=== PATIENT | male | born 1960 | race Caucasian/White ===

== ENCOUNTER 2020-12-02 12:19 | Emergency (ER) | payer MEDICARE, MEDICAID, SELFPAY ==
--- NOTE | 2020-12-02 12:29 | ED.SKABFB ---
HPI - Skin/Abscess/Foreign Bdy General Chief complaint: Skin/Abscess/Foreign Body Stated complaint: poison Meghana Time Seen by Provider: 12/02/20 12:29 Source: patient and RN notes reviewed Mode of arrival: ambulatory Limitations: no limitations History of Present Illness HPI narrative: 60-year-old male presents to the [facility] with complaints of a generalized rash for 2-3 days. Reports I have poison meghana as he is pointing to his genital area. Reports rash to the right arm, testicles and abdomen describes it as being very itchy. Denies any new creams or ointments lotions or detergents. No new furniture, clothing or bedding. Denies anyone else in the household has anything similar. Related Data Home Medications Medication Instructions Recorded Confirmed brexpiprazole [Rexulti] 4 mg PO DAILY 12/02/20 12/02/20 methadone 80 mg PO DAILY 12/02/20 12/02/20 Allergies Allergy/AdvReac Type Severity Reaction Status Date / Time Iodinated Contrast Media Allergy Dyspnea / Verified 12/02/20 12:39 SOB Review of Systems Review of Systems: All systems reviewed & are unremarkable except as noted in HPI and below Constitutional: Constitutional: Reports no additional constitutional complaints, Denies chills, Denies fatigue, Denies fever(s) and Denies weakness Cardiovascular: Cardiovascular: Reports no additional cardiovascular complaints and Denies chest pain Respiratory: Respiratory: Reports no additional respiratory complaints, Denies chest congestion, Denies cough, Denies dyspnea and Denies wheezing Gastrointestinal: Gastrointestinal: Reports no additional gastrointestinal complaints, Denies abdominal pain, Denies nausea and Denies vomiting Musculoskeletal: Musculoskeletal: Reports no additional musculoskeletal complaints Integumentary/Breasts: Skin/Breast: Reports rash Neurologic: Reports system reviewed and no additional complaints, except as documented, Denies dizziness, Denies syncope, Denies focal weakness and Denies numbness Psychiatric: Psychiatric: Reports no additional psychiatric complaints PMFSH Comments At the time of my signature, I reviewed and agree with the nursing past medical, surgical, social, and family history. There is no relevant family history pertinent to the patient complaint. Exam Const: General: no acute distress, alert and ill appearing chronically Nutritional Appearance: well nourished Orientation/consciousness: patient oriented x3 Limitations: no limitations HENMT: Head: normal to inspection Eyes: Pupils: Equal, round and reactive pupils present Neck: Neck: normal visual inspection and no lymphadenopathy Chest: Chest palpation & inspection: normal inspection of the chest Resp: Effort & Inspection: normal respiratory effort and no use of accessory muscles Auscultation: clear to auscultation bilaterally, no crackles, no rales, no rhonchi and no wheezes Cardio: Rate: regular rate Rhythm: regular rhythm : Other: Patient concern for poison meghana to his testicles, chaperoned by Megan MCDOWELL. No testicular rash noted on exam. No testicular tenderness. Back/Spine/Pelvis: Back: no CVA tenderness Skin: Other: 3 small red areas noted to the right antecubital, area dorsal aspect right wrist, 2 small areas on his abdomen. Patient states everything is under my tattoos. . No vesicular areas noted. No red raised areas other than previous documented Neuro: General: patient oriented x3, moves all extremities, no meningeal signs and no focal motor deficits Speech: normal speech Gait exam (Neuro): Normal gait present Extrem: General: normal to inspection Psych: Appearance: grossly normal Mental Status: mental status grossly normal Affect: normal affect Attitude: cooperative Thought content: Yes Normal thought content present Course Vital Signs Vital signs: Vital Signs Temperature 99.3 F 12/02/20 12:30 Pulse Rate 74 12/02/20 12:30 Respiratory Rate 16 12/02/20 12:30 Blood Pr
[2020-12-02 12:30] VITALS: BP 140/74; PULSE 74; RESP 16; TEMP 37.4; O2SAT 99
== END 2020-12-02 12:59 | disposition home or self-care (01) ==
PROVIDERS: Emergency Provider Nurse Practitioner
DX: S40.861A Insect bite (nonvenomous) of right upper arm, initial encounter (principal); S60.861A Insect bite (nonvenomous) of right wrist, initial encounter; S30.861A Insect bite (nonvenomous) of abdominal wall, initial encounter; W57.XXXA Bitten or stung by nonvenomous insect and other nonvenomous arthropods, initial encounter; F32.9 Major depressive disorder, single episode, unspecified; Z85.72 Personal history of non-Hodgkin lymphomas
CPT/HCPCS: 99213; G0463

== ENCOUNTER 2021-03-20 13:59 | Emergency (ER) | payer MEDICARE, MEDICAID, SELFPAY ==
--- NOTE | 2021-03-20 14:06 | ED.WOUNDLAC ---
HPI - Wound/Laceration General Chief Complaint: Wound/Laceration Stated Complaint: Dog scratch on right Arm Time Seen by Provider: 03/20/21 14:07 Source: patient and RN notes reviewed History of Present Illness HPI narrative: Patient is a 60-year-old male who presents the urgent care with complaints of a dog scratch to the right forearm. Patient states that occurred approximately 3 days ago and he has been cleaning it with alcohol. Patient states he woke up this morning with some redness and swelling to the right arm. Also reports of tenderness. Denies of any fever, nausea, vomiting. No other acute complaints. No acute distress noted. Patient aware of the plan of care. Some parts of this dictation were generated by voice recognition software and may contain typographical and/or grammatical inaccuracies. Related Data Home Medications Medication Instructions Recorded Confirmed brexpiprazole [Rexulti] 4 mg PO DAILY 12/02/20 03/20/21 methadone 80 mg PO DAILY 12/02/20 03/20/21 Allergies Allergy/AdvReac Type Severity Reaction Status Date / Time Iodinated Contrast Media Allergy Dyspnea / Verified 03/20/21 14:05 SOB Review of Systems Review of Systems: CONSTITUTIONAL: Denies fever, chills, or sweats. EYES: Denies visual changes, redness, or discharge. ENT: Denies rhinorrhea, congestion, sore throat, or otalgia. CARDIOVASCULAR: Denies chest pain, palpitations, or edema. RESPIRATORY: Denies cough or dyspnea. GASTROINTESTINAL: Denies abdominal pain, nausea, vomiting, or diarrhea. GENITOURINARY: Denies dysuria or hematuria. SKIN: Reports of a dog scratch to the right forearm with surrounding redness and tenderness MUSCULOSKELETAL: Denies back pain, joint pain, or myalgia. NEUROLOGIC: Denies headache, numbness, or weakness. All other systems reviewed are negative, except as documented in HPI. PMFSH Comments At the time of my signature, I reviewed and agree with the nursing past medical, surgical, social, and family history. There is no relevant family history pertinent to the patient complaint. Exam Narrative: GENERAL: This is a well-nourished, well-developed patient, in no apparent distress. HEAD: normocephalic, atraumatic. EYES: PERRL. Sclera clear/white. Vision is grossly intact. EARS: External ears normal NOSE: External nose normal with no obvious nasal discharge, nares without redness, no rhinorrhea. THROAT: Mucous membranes moist NECK: Neck supple CARDIOVASCULAR: Regular rate and rhythm without murmurs, gallops, or rubs. RESPIRATORY: Clear to auscultation. Breath sounds equal bilaterally. No wheezes, rales, or rhonchi. SKIN: 2 cm linear superficial wound to the right forearm with 5 x 5 surrounding edema and mild surrounding erythema with mild tenderness NEURO: awake, alert, and oriented to person, place and time. There were no obvious focal neurologic abnormalities. EXTREMITIES: No clubbing, cyanosis, or edema. Course Vital Signs Vital signs: Vital Signs Temperature 97.8 F 03/20/21 14:10 Pulse Rate 80 03/20/21 14:10 Respiratory Rate 18 03/20/21 14:10 Blood Pressure 106/66 03/20/21 14:10 Pulse Oximetry 97 03/20/21 14:10 Temperature 97.8 F 03/20/21 14:10 Pulse Rate 80 03/20/21 14:10 Respiratory Rate 18 03/20/21 14:10 Blood Pressure 106/66 03/20/21 14:10 Pulse Oximetry 97 03/20/21 14:10 Reviewed MDM - Wound/Laceration MDM Narrative Medical decision making narrative: Advised the patient to use the prescription cream to the affected area twice a day. Keep the wound closed if at risk of being soiled. Clean with plain Dial soap and water. Complete the oral antibiotic regimen as prescribed. If you develop any increase in swelling, redness or drainage from the wound?go to the emergency room. Follow-up with your PCP within 2 to 5 days or for worsening symptoms or failure to improve. Differential Diagnosis Differential diagnosis: Likely laceration, abscess, abrasion and avulsio
[2021-03-20 14:10] VITALS: BP 106/66; PULSE 80; RESP 18; TEMP 36.6; O2SAT 97
== END 2021-03-20 14:20 | disposition home or self-care (01) ==
PROVIDERS: Emergency Provider Nurse Practitioner Family
DX: L03.113 Cellulitis of right upper limb (principal)
CPT/HCPCS: 99213; G0463

== ENCOUNTER 2021-04-01 18:37 | Emergency (ER) | payer MEDICARE, MEDICAID, SELFPAY ==
[2021-04-01 18:49] VITALS: BP 156/67; PULSE 88; RESP 20; TEMP 36.8; O2SAT 99
--- NOTE | 2021-04-01 18:50 | ED.GENADULT ---
HPI - General Adult General Chief complaint: Upper Respiratory Infection Stated complaint: sinus/chest gallito,102 temp Time Seen by Provider: 04/01/21 18:51 Source: patient Mode of arrival: ambulatory Limitations: no limitations History of Present Illness HPI narrative: 60-year-old male patient presents to the [facility] with complaints of suspected fever and cold symptoms that started today. Patient states he took his temperature today and was 100.2. Patient states he has had a little bit of drainage with a cough. Denies body aches or chills. Denies any abdominal pain, nausea, vomiting or diarrhea. Denies any chest pain or shortness of breath. Patient states he is not vaccinated. Patient states he has concerned because he is living in a [facility] at this time with his and his has autoimmune disorder of rheumatoid arthritis and scar doses. is vaccinated. Patient here to be evaluated and possibly tested for COVID-19. Related Data Home Medications Medication Instructions Recorded Confirmed methadone 80 mg PO DAILY 12/02/20 03/20/21 brexpiprazole [Rexulti] 1 mg PO DAILY 04/01/21 04/01/21 mirtazapine 15 mg PO HS 04/01/21 04/01/21 Allergies Allergy/AdvReac Type Severity Reaction Status Date / Time Iodinated Contrast Media Allergy Dyspnea / Verified 04/01/21 19:15 SOB Review of Systems Review of Systems: CONSTITUTIONAL: Positive subjective fever, denies chills, or sweats. EYES: Denies visual changes, redness, or discharge. ENT: Positive rhinorrhea, congestion, denies sore throat, or otalgia. CARDIOVASCULAR: Denies chest pain, palpitations, or edema. RESPIRATORY: Positive cough, denies dyspnea. GASTROINTESTINAL: Denies abdominal pain, nausea, vomiting, or diarrhea. GENITOURINARY: Denies dysuria or hematuria. SKIN: Denies rash or itching. MUSCULOSKELETAL: Denies back pain, joint pain, or myalgia. NEUROLOGIC: Denies headache, numbness, or weakness. PSYCHIATRIC: Denies anxiety or depression. [facility] Past Medical History Medical History (Updated 04/01/21 @ 19:30 by MAHAMED Bradley) Substance abuse Heroin positive Suspected COVID-19 virus infection Comments At the time of my signature I agree with nursing past medical history, surgical, social, and family history. There is no relevant family history pertinent to the presenting complaint. Exam Narrative: GENERAL: Well-appearing, well-nourished, and in no acute distress. HEAD: Normocephalic, atraumatic. EYES: PERRLA and EOMI. ENT: Nares clear, no rhinorrhea or epistaxis. Mucous membranes moist. Bilateral TMs are clear no erythema or foreign bodies to the canal. Posterior pharynx with no erythema, tonsillar Ambika, exudates or lesions present. NECK: Supple. No lymphadenopathy CHEST: Clear to auscultation. No respiratory distress. HEART: Regular rate and rhythm. No murmur heard. Normal peripheral pulses. ABDOMEN: Soft, nontender, nondistended, normal active bowel sounds. EXTREMITIES: Normal range of motion. No edema. SKIN: Warm, dry, no rash. NEURO: No focal deficits. Alert and oriented x3. Course Vital Signs Vital signs: Vital Signs Temperature 36.8 C 04/01/21 18:49 Pulse Rate 88 04/01/21 18:49 Respiratory Rate 20 04/01/21 18:49 Blood Pressure 156/67 H 04/01/21 18:49 Pulse Oximetry 99 04/01/21 18:49 Temperature 36.8 C 04/01/21 18:49 Pulse Rate 88 04/01/21 18:49 Respiratory Rate 20 04/01/21 18:49 Blood Pressure 156/67 H 04/01/21 18:49 Pulse Oximetry 99 04/01/21 18:49 Vital signs reviewed The patient has been informed that they may have pre-hypertension or Hypertension based on a BP reading in the department. I recommend that the patient call the primary care provider listed on their discharge instructions or a physician of their choice this week to arrange follow up for further evaluation of possible pre-hypertension or Hypertension Medical Decision Making Differential Diagnosis Differential Diag
[2021-04-03 19:00] LABS: SARS-CoV-2 RNA PCR Negative
== END 2021-04-01 19:30 | disposition home or self-care (01) ==
PROVIDERS: Emergency Provider Nurse Practitioner Family
DX: R50.9 Fever, unspecified (principal); R09.89 Other specified symptoms and signs involving the circulatory and respiratory systems; R05 Cough; Z20.822 Contact with and (suspected) exposure to COVID-19
CPT/HCPCS: 99213; C9803; G0463; U0003; U0005

== ENCOUNTER 2021-04-25 18:01 | Emergency (ER) | payer MEDICARE, MEDICAID, SELFPAY ==
--- NOTE | 2021-04-25 18:03 | ED.SKABFB ---
HPI - Skin/Abscess/Foreign Bdy General Chief complaint: Skin/Abscess/Foreign Body Stated complaint: Skin Sore Time Seen by Provider: 04/25/21 18:03 Source: patient and RN notes reviewed History of Present Illness HPI narrative: Patient is a 60-year-old male who presents the urgent care with complaints of a skin sore to the right thigh. Patient states he noticed approximately a week ago and has been picking on the area. Patient states that he believes it started out as an ingrown hair and he tried to pick the hair out . Patient has been using peroxide, alcohol and Neosporin to the area. Denies of any change in redness. Denies of fever, chills, nausea, vomiting. No other acute complaints. No acute distress noted. Patient aware of the plan of care. Some parts of this dictation were generated by voice recognition software and may contain typographical and/or grammatical inaccuracies. Related Data Home Medications Medication Instructions Recorded Confirmed methadone 60 mg PO DAILY 12/02/20 04/25/21 brexpiprazole [Rexulti] 1 mg PO DAILY 04/01/21 04/25/21 mirtazapine 15 mg PO HS 04/01/21 04/25/21 Allergies Allergy/AdvReac Type Severity Reaction Status Date / Time Iodinated Contrast Media Allergy Rash Verified 04/25/21 18:15 Review of Systems Review of Systems: CONSTITUTIONAL: Denies fever, chills, or sweats. EYES: Denies visual changes, redness, or discharge. ENT: Denies rhinorrhea, congestion, sore throat, or otalgia. CARDIOVASCULAR: Denies chest pain, palpitations, or edema. RESPIRATORY: Denies cough or dyspnea. GASTROINTESTINAL: Denies abdominal pain, nausea, vomiting, or diarrhea. GENITOURINARY: Denies dysuria or hematuria. SKIN: Reports of a sore to the right thigh MUSCULOSKELETAL: Denies back pain, joint pain, or myalgia. NEUROLOGIC: Denies headache, numbness, or weakness. All other systems reviewed are negative, except as documented in HPI. [facility] Past Medical History Medical History (Updated 04/25/21 @ 18:19 by MAHAMED Gonzalez) Substance abuse Heroin positive Suspected COVID-19 virus infection Comments At the time of my signature, I reviewed and agree with the nursing past medical, surgical, social, and family history. There is no relevant family history pertinent to the patient complaint. Exam Narrative: GENERAL: This is a well-nourished, well-developed patient, in no apparent distress. HEAD: normocephalic, atraumatic. EYES: PERRL. Sclera clear/white. Vision is grossly intact. EARS: External ears normal NOSE: External nose normal with no obvious nasal discharge, nares without redness, no rhinorrhea. THROAT: Mucous membranes moist NECK: Neck supple CARDIOVASCULAR: Regular rate and rhythm RESPIRATORY: Clear to auscultation. Breath sounds equal bilaterally. No wheezes, rales, or rhonchi. SKIN: Noncellulitic folliculitis noted to the anterior aspect of the right thigh with very mild surrounding erythema measuring 4 x 1 cm-no drainage. Warm, intact with no suspicious lesions or rash, good texture and turgor. NEURO: awake, alert, and oriented to person, place and time. There were no obvious focal neurologic abnormalities. EXTREMITIES: No clubbing, cyanosis, or edema. Course Vital Signs Vital signs: Vital Signs Temperature 98.1 F 04/25/21 18:05 Pulse Rate 77 04/25/21 18:05 Respiratory Rate 16 04/25/21 18:05 Blood Pressure 134/84 04/25/21 18:05 Pulse Oximetry 98 04/25/21 18:05 Temperature 98.1 F 04/25/21 18:05 Pulse Rate 77 04/25/21 18:05 Respiratory Rate 16 04/25/21 18:05 Blood Pressure 134/84 04/25/21 18:05 Pulse Oximetry 98 04/25/21 18:05 Reviewed MDM - Skin/Abscess/Foreign Bdy MDM Narrative Medical decision making narrative: Advised the patient to use ice to the area as needed. Use of prescription cream to the area 2-3 times per day as directed. Clean with plain Dial soap and water. Do not put any alcohol, peroxide or printed on the area. May at
[2021-04-25 18:05] VITALS: BP 134/84; PULSE 77; RESP 16; TEMP 36.7; O2SAT 98
== END 2021-04-25 18:24 | disposition home or self-care (01) ==
PROVIDERS: Emergency Provider Nurse Practitioner Family; PCP Nurse Practitioner Family
DX: L73.9 Follicular disorder, unspecified (principal); E78.00 Pure hypercholesterolemia, unspecified; Z85.72 Personal history of non-Hodgkin lymphomas
CPT/HCPCS: 99213; G0463

== ENCOUNTER 2024-10-15 13:59 | Emergency (ER) | payer MEDICARE, MEDICAID, SELFPAY ==
[2024-10-15 14:21] VITALS: BP 128/75; PULSE 75; RESP 20; TEMP 37.1; O2SAT 97
--- OUTSIDE RECORDS SUMMARY | 2024-10-15 14:23 | XMS_ITS | Clinical Summary ---
Author Organization [facility] Address [address] [place] [address] Phone Care Team Providers Care Staff Counselor Name Role Phone Bladimir Sanz MD Primary Care Provider [phone] Allergies Active Allergy Reactions Criticality Noted Date Comments Influenza Vaccine Live Anaphylaxis High 03/28/2023 Patient allergy to Flue Vaccine Iodinated Contrast Media Hives High 03/05/2023 Medications atorvastatin (LIPITOR) 40 MG Tablet 3 Active testosterone cypionate (DEPO-TESTOSTER ONE) 200 MG/ML Solution by Intramuscular route. 3 Active SYRINGE-NEEDLE, DISP, 3 ML (B-D INTEGRA SYRINGE) 25G X 5/8 3 ML Misc Use to inject testosterone every week 3 Active sildenafil (REVATIO) 20 MG Tablet Take 60-100 mg prn before intercourse 3 Active methadone (DOLOPHINE) 10 MG/ML Concentrate Take 60 mg by mouth. Active predniSONE (DELTASONE) 20 MG Tablet Take 2 Tablets by mouth daily. 10 Tablet 4 Active triamcinolone (KENALOG) 0.1 % Cream Apply 3 times daily. Application Site: (Description and Location)left thigh 454 g 4 Active Encounters Date Type Department Care Team Description 10/08/2024 10:30 AM CDT Physical Therapy [facility] [address] [place] [address] Umesh, Mari Noriega, PARKING LOT SIGNALER, LEASING SALES CONSULTANT Tamy Bose, PT Cervical radiculopathy (Primary Dx); Left elbow tendinitis; Impingement syndrome of left shoulder region Discharge Disposition: Discharged to home or Selfcare 10/06/2024 Travel 09/29/2024 9:00 AM CDT Occupational Therapy [facility] [address] [place] [address] Umesh, Mari Noriega, PARKING LOT SIGNALER, LEASING SALES CONSULTANT Cadence Hairston K, OT 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 of left 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 (Primary Dx); Lateral epicondylitis, left elbow Discharge Disposition: Discharged to home or Selfcare 09/29/2024 Plan of Care Documentation [facility] [address] [place] [address] 09/28/2024 8:15 AM CDT Physical Therapy [facility] [address] [place] [address] Umesh, Mari Noriega, PARKING LOT SIGNALER, Willian Ricardo, PT Cervical radiculopathy (Primary Dx); Left elbow tendinitis; Impingement syndrome of left shoulder region Discharge Disposition: Discharged to home or Selfcare 09/27/2024 Travel 09/16/2024 2:30 PM LEAD NETWORK ARCHITECT Physical Therapy [facility] [address] [place] [address] Umesh, Mari A, PARKING LOT SIGNALER, LEASING SALES CONSULTANT Willian Nettles, PT Cervical radiculopathy (Primary Dx); Left elbow tendinitis; Impingement syndrome of left shoulder region Discharge Disposition: Discharged to home or Selfcare 09/16/2024 Travel 09/14/2024 1:45 PM LEAD NETWORK ARCHITECT Physical Therapy [facility] [address] [place] [address] Mari Calvo APRN, Willian Ricardo, PT Cervical radiculopathy (Primary Dx); Impingement syndrome of left shoulder region; Left elbow tendinitis Discharge Disposition: Discharged to home or Selfcare 09/14/2024 Travel 09/11/2024 Transcribe Orders [facility] [address] [place] [address] Mari Calvo APRN, LEASING SALES CONSULTANT Lateral epicondylitis, left elbow (Primary Dx) 09/10/2024 3:15 PM LEAD NETWORK ARCHITECT Physical Therapy [facility] [address] [place] [address] Mari Calvo APRN, Tamy Mcgraw, PT Impingement syndrome of left shoulder region (Primary Dx); Left elbow tendinitis; Cervical radiculopathy Discharge Disposition: Discharged to home or Selfcare 09/10/2024 Plan of Care Documentation [facility] [address] [place] [address] 09/10/2024 Travel 07/30/2024 Telephone [facility] [address] [place] [address] Rachel Barriga, PT Appointment from Last 3 Months Family History Medical History Relation Name Comments Alcohol Abuse Father Liver Disease Father Alcohol Abuse Mother Drug Abuse Mother Macular Degeneration Mother No Known Problems Sister 1 Alcohol Abuse Sister 2 Drug Abuse Sister 2 Schizophrenia Sister 2 No Known Problems Sister 3 Relation Name Status Comments Father Mother Alive Sister 1 Alive Sister 2 Alive Sister 3 Alive Social History Tobacco Use Types Packs/Day Years Used Date Smoking Tobacco: Former Cigarettes Smokeless Tobacco: Never Tobacco Cessation:Counseling Given: No Alcohol Use Standard Drinks/Week Comments Never 0 (1 standard drink = 0.6 oz pur e alcohol) PHQ-2 Answer Date Recorded Total Score - Questions 1-9 04/15 Education Answer Date Recorded What is the highest level of school you have completed or the highest degree you have received? 9th grade 05/07/2023 Sex and Gender Information Value Date Recorded Sex Assigned at Not on file Legal Sex Male 11:58 PM CDT Gender Identity Not on file Sexual Orientation Not on file Last Filed Vital Signs Vital Sign Reading Time Taken Comments Blood Pressure 128/66 12/28/2023 7:33 PM CDT Pulse 77 12/28/2023 7:33 PM CDT Temperature 36.5 C (97.7 F) 12/28/2023 7:33 PM CDT Respiratory Rate 17 12/28/2023 7:33 PM CDT Oxygen Saturation 96% 12/28/2023 7:33 PM CDT Inhaled Oxygen Concentration - - Weight 79.4 kg (175 lb) 12/28/2023 7:33 PM CDT Height 177.8 cm (5' 10 ) 12/28/2023 7:33 PM CDT Body Mass Index 25.11 12/28/2023 7:33 PM CDT Plan of Treatment Upcoming Encounters Date Type Department Care Team (Late st Contact Info) Description 10/20/2024 9:45 AM CDT Occupational Therapy [facility] [address] [place] [address] Mari Calvo APRN, LEASING SALES CONSULTANT [address] [place] [address] Cadence Hairston OT [place] 10/20/2024 10:30 AM CDT Physical Therapy [facility] [address] [place] [address] Mari Calvo APRN, LEASING SALES CONSULTANT [address] [place] [address] Tamy Bose PT [place] 10/27/2024 9:45 AM CDT Occupational Therapy [facility] [address] [place] [address] Umesh, Mari A, PARKING LOT SIGNALER, LEASING SALES CONSULTANT [address] [place] [address] Cadence Hairston OT [place] 11/03/2024 9:45 AM CDT Occupational Therapy [facility] [address] [facility], [address] [place] [address] Umesh, Mari A, PARKING LOT SIGNALER, LEASING SALES CONSULTANT [address] [place] [address] Cadence Hairston, OT [place] 11/17/2024 9:45 AM CDT Occupational Therapy [facility] at [address], [address] [place] [address] Umesh, Mari A, PARKING LOT SIGNALER, LEASING SALES CONSULTANT [address] [place] [address] Cadence Hairston, [place] 11/24/2024 9:45 AM CDT Occupational Therapy [facility] at [address], [address] [place] [address] Umesh, Mari A, PARKING LOT SIGNALER, LEASING SALES CONSULTANT [address] [place] [address] Cadence Hairston, OT [place] 12/01/2024 9:45 AM CDT Occupational Therapy [facility] at [address], [address] [place] [address] Umesh, Mari A, PARKING LOT SIGNALER, LEASING SALES CONSULTANT [address] [place] [address] Cadence Hairston, OT [place] Health Maintenance Due Date Last Done Comments TdaP Immunization 1962 Colonoscopy 2007 Colorectal Cancer Screening 2007 Cologuard 2012 Immunochemical Fecal Occult Blood 2012 Pneumococcal Immunization (5 0+ years) (1 of 1 - PCV) 2012 Zoster Immunization (1 of 2) 2012 PSA Discussion 2017 Influenza Immunization (#1) 2024 SARS-COV-2 Immunization (1 - 2023- season) 2024 Respiratory Syncytial Virus (RSV) Immunization (Adult) (1 - 1-dose 75+ series) 2037 Hepatitis B Immunization Aged Out No longer eligible based on patient's age to complete this topic Meningococcal Immunization (ACWY) Aged Out No longer eligible based on patient's age to complete this topic Rotavirus Immunization Aged Out No lo nger eligible based on patient's age to complete this topic Insurance MEDICARE [place]ICAID [place] Care Teams Staff Counselor Relationship Specialty Start Date End Date Bladimir Sanz MD [address] [place] [address] PCP - General Family Medicine 05/07/23
--- OUTSIDE RECORDS SUMMARY | 2024-10-15 14:23 | XMS_ITS | Data Portability ---
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 Bryan came into the office today to reestablish care and ER follow-up. On December 27, the patient presented to [facility] for assessment of a pruritic rash on his left lateral thigh. Not available 12/30/2023 16:49:05 01/28/2024 01/28/2024 Mr. Bryan presented in office today for follow up appointment, and Medicare wellness exam. Not available 02/01/2024 14:21:24 06/30/2024 06/30/2024 Mr. Bryan presents for follow-up with complaints of left shoulder pain that radiates down to the left elbow, causing numbness. The symptoms have been present for the past year and have progressively worsened over time. Not available 07/15/2024 22:11:07 08/18/2024 08/18/2024 Mr. Alamo presents with a complaint of left elbow pain that has been present for the past 2-3 weeks. He denies any specific injury or trauma to the elbow. Not available 09/05/2024 13:37:11 Plan of Treatment Reminders Order Date Submit Date Provider Last Modified By Organization Details Last Modified Time Details Appointments ANY 15 2024 10:30A M MARI JULES NP Not available Not available Not available Lab lipid panel, serum 2023 024 P[facility]REZ [facility], [address] [facility], [facility] [address], [place], [address], 12/31/2023 16:12:40 CMP, serum or plasma 2023 024 PÉREZ [facility], [address] [facility], [facility] [address], [place], [address], 12/31/2023 16:12:41 CBC w/ auto diff 2023 024 PÉREZ [facility], [address] [facility], [facility] [address], [place], [address], 12/31/2023 16:12:42 HbA1c (hemoglo bin A1c), blood 2021 022 [email or web address] In-Office Order, Internal Use Only DO Not Attach Compendium DO Not Attach Compendium, Do Not Delete/merge, [id number] 08/28/2021 10:52:13 Referral physical therapis t referral 2023 024 [facility], [address] [facility], [place], [address], 09/10/2024 18:35:54 hematolo gist/onc ologist referral 2021 022 PÉREZ [facility], [address] [facility] , [address], [place], [address], 09/25/2021 10:44:18 Procedures None recorded . Surgeries None recorded . Imaging MAMMO, screenin g, bilatera l 2023 024 marianon [facility], [address] [facility] , [place], [address], 01/06/2024 09:00:38 Medication Orders Medrol (Lam) 4 mg tablets in a dose pack 2023 024 [facility], [address], [place], [place], [id number], 06/30/2024 12:29:12 Rexulti 1 mg tablet 2023 024 [email or web address] [facility], [address], [place], [place], [id number], 12/30/2023 16:12:45 Vitamin D2 1,250 mcg (50,000 unit) capsule 2021 022 [email or web address] [facility] #04549, [address], [place], [place], [phone], 12/30/2023 11:12:34 Patient TargetsNo targets recorded. Patient Instructions Encounter Date Encounter Id Patient Instructions Last Modified By Organization Details Last Modified Time 12/30/2023 [id number] - limit/avoid consumption of processed foods. choose a diet rich in fruits, and vegetables, low fat, low carbs. - Eat less salt (sodium) - exercise for at least 30 minutes a day on most days of the week - Limit the amount of caffeine and alcohol you drink - work on obtaining and maintaining a healthy weight Not available 12/30/2023 16:48:44 - Always present to ER or Urgent Care with any progression of/alarming symptoms, significant changes in symptoms or any concerning or urgent matters Not available 12/30/2023 11:37:37 01/28/2024 [id number] A healthy lifestyle: care instructions Not available 01/28/2024 12:30:34 advance care planning: care instructions Not available 01/28/2024 12:30:34 preventing falls : care instructions Not available 01/28/2024 12:30:34 Quitting Tobacco : Care Instructions Not available 01/28/2024 12:30:34 Medicare Wellnes s Preventive Checklist Not available 01/28/2024 12:30:34 eating healthy foods: care instructions Not available 01/28/2024 12:30:34 AD8 Dementia Screening Interview Not available 01/28/2024 12:30:34 - Always present to ER or Urgent Care with any progression of/alarming symptoms, significant changes in symptoms or any concerning or urgent matters Not available 01/28/2024 12:30:42 06/30/2024 [id number] shoulder stretches: exercises Not available 06/30/2024 12:31:03 shoulder pain: care instructions Not available 06/30/2024 12:31:03 - Always present to ER or Urgent Care with any progression of/alarming symptoms, significant changes in symptoms or any concerning or urgent matters Not available 06/30/2024 12:27:01 08/18/2024 [id number] tennis elbow: exercises Not available 08/18/2024 12:37:30 - Always present to ER or Urgent Care with any progression of/alarming symptoms, significant changes in symptoms or any concerning or urgent matters Not available 09/05/2024 13:29:10 Reason for Referral Referring Physician: Dwight martini, Family Medicine, Encounter Date: 08/28/2021 Physical Therapist Referral for Impingement syndrome of left shoulder region Referring Physician: Mari Jules [facility], Encounter Date: 06/30/2024 Results Created Date Observation Date Name Description Value Unit Range Abnormal Flag Note LastModifiedBy Organization Detail LastModifiedTime 08/28/1908/28/2021 HbA1c (hemo globi n A1c), blood HbA1c 5.5 Not Available In-Office Order Internal Use Only DO Not Attach Compendium DO Not Attach Compendium, Do Not Delete/merge, [id number] 08/28/2021 10:01:56 12/30/19 24 12/31/2023 SPECI MEN STATU S REPOR T specimen status report TNP Test not perfo rmed. No serum gel recei jemima. TEST: [id number] 0 Comp. Metab olic Panel (99) 74505 6 Lipid Panel Not Available [facility] ([facility]) [address] [facility] [address], [place], [address], 12/31/2023 16:12:39 12/30/19 24 12/31/2023 LIPID PANEL cholesterol, total - mg/dL Test not perfo rmed. No serum gel recei jemima. Not Available [facility] ([facility]) [address] [facility], [place], [address], 12/31/2023 16:12:40 12/30/19 24 12/31/2023 LIPID PANEL triglyceride s - Test not perfo rmed Not Available [facility] ([facility]) [address] [facility], [place], [address], 12/31/2023 16:12:40 12/30/19 24 12/31/2023 LIPID PANEL HDL cholesterol - Test not perfo rmed Not Available [facility] ([facility]) [address] [facility] [place], [address], 12/31/2023 16:12:40 12/30/19 24 12/31/2023 LIPID PANEL VLDL cholesterol brenda TNP mg/dL Unabl e to calcu late resul t since non-n umeri c resul t obtai lawrence for compo nent test. Not Available [facility] ([facility]) [address] [facility], [place], [address], 12/31/2023 16:12:40 12/30/19 24 12/31/2023 COMP. METAB OLIC PANEL (14) glucose - mg/dL Test not perfo rmed. No serum gel recei jemima. Not Available [facility] ([facility]) [address] [place], [address], 12/31/2023 16:12:41 12/30/19 24 12/31/2023 COMP. METAB OLIC PANEL (14) BUN - Test not perfo rmed Not Available [facility] ([facility]) [address] [place], [address], 12/31/2023 16:12:41 12/30/19 24 12/31/2023 COMP. METAB OLIC PANEL (14) creatinine - Test not perfo rmed Not Available [facility] ([facility]) [address] [place], [address], 12/31/2023 16:12:41 12/30/19 24 12/31/2023 COMP. METAB OLIC PANEL (14) sodium - Test not perfo rmed Not Available [facility] ([facility]) [address] [facility], [place], [address], 12/31/2023 16:12:41 12/30/19 24 12/31/2023 COMP. METAB OLIC PANEL (14) potassium - Test not perfo rmed Not Available [facility] ([facility]) [address] [facility] [place], [address], 12/31/2023 16:12:41 12/30/19 24 12/31/2023 COMP. METAB OLIC PANEL (14) chloride - Test not perfo rmed Not Available [facility] ([facility]) [address] [facility] [place], [address], 12/31/2023 16:12:41 12/30/19 24 12/31/2023 COMP. METAB OLIC PANEL (14) carbon dioxide, total - Test not perfo rmed Not Available [facility] ([facility]) [address] [facility] [place], [address], 12/31/2023 16:12:41 12/30/19 24 12/31/2023 COMP. METAB OLIC PANEL (14) calcium - Test not perfo rmed Not Available [facility] ([facility]) [address] [facility] [place], [address], 12/31/2023 16:12:41 12/30/19 24 12/31/2023 COMP. METAB OLIC PANEL (14) protein, total - Test not perfo rmed Not Available [facility] ([facility]) [address] [facility] [place], [address], 12/31/2023 16:12:41 12/30/19 24 12/31/2023 COMP. METAB OLIC PANEL (14) albumin - Test not perfo rmed Not Available [facility] ([facility]) [address] [facility], [place], [address], 12/31/2023 16:12:41 12/30/19 24 12/31/2023 COMP. METAB OLIC PANEL (14) bilirubin, total - Test not perfo rmed Not Available [facility] ([facility]) [address] [facility], [place], [address], 12/31/2023 16:12:41 12/30/19 24 12/31/2023 COMP. METAB OLIC PANEL (14) alkaline phosphatase - Test not perfo rmed Not Available [facility] ([facility]) [address] [facility] [place], [address], 12/31/2023 16:12:41 12/30/19 24 12/31/2023 COMP. METAB OLIC PANEL (14) AST (SGOT) - Test not perfo rmed Not Available [facility] ([facility]) [address] [facility], [place], [address], 12/31/2023 16:12:41 12/30/19 24 12/31/2023 COMP. METAB OLIC PANEL (14) ALT (SGPT) - Test not perfo rmed Not Available [facility] ([facility]) [address] [place], [address], 12/31/2023 16:12:41 12/30/19 24 12/31/2023 CBC WITH DIFFE RENTI AL/PL ATELE T WBC 14.5 x10e3 /uL 3.4-10 .8 above high normal Not Available [facility] ([facility]) [address] [place], [address], 12/31/2023 16:12:42 12/30/19 24 12/31/2023 CBC WITH DIFFE RENTI AL/PL ATELE T RBC 5.72 x10e6 /uL 4.14-5 .80 Not Available [facility] ([facility]) [address] [facility], [place], [address], 12/31/2023 16:12:42 12/30/19 24 12/31/2023 CBC WITH DIFFE RENTI AL/PL ATELE T hemoglobin 16.5 g/dL 13.0-1 7.7 Not Available [facility] ([facility]) [address] [facility], [place], [address], 12/31/2023 16:12:42 12/30/19 24 12/31/2023 CBC WITH DIFFE RENTI AL/PL ATELE T hematocrit 51.2 % 37.5-5 1.0 above high normal Not Available [facility] ([facility]) [address] [facility], [place], [address], 12/31/2023 16:12:42 12/30/19 24 12/31/2023 CBC WITH DIFFE RENTI AL/PL ATELE T MCV 90 fL 79-97 Not Available [facility] ([facility]) [address] [facility], [place], [address], 12/31/2023 16:12:42 12/30/19 24 12/31/2023 CBC WITH DIFFE RENTI AL/PL ATELE T MCH 28.8 pg 26.6-3 3.0 Not Available [facility] ([facility]) [address] [facility], [place], [address], 12/31/2023 16:12:42 12/30/19 24 12/31/2023 CBC WITH DIFFE RENTI AL/PL ATELE T MCHC 32.2 g/dL 31.5-3 5.7 Not Available [facility] ([facility]) [address] [place], [address], 12/31/2023 16:12:42 12/30/19 24 12/31/2023 CBC WITH DIFFE RENTI AL/PL ATELE T RDW 13.3 % 11.6-1 5.4 Not Available [facility] ([facility]) [address] [facility], [place], [address], 12/31/2023 16:12:42 12/30/19 24 12/31/2023 CBC WITH DIFFE RENTI AL/PL ATELE T platelets 201 x10e3 /uL 150-45 0 Not Available [facility] ([facility]) [address] [facility], [place], [address], 12/31/2023 16:12:42 12/30/19 24 12/31/2023 CBC WITH DIFFE RENTI AL/PL ATELE T neutrophils 75 % notest ab. Not Available [facility] ([facility]) [address] [facility], [place], [address], 12/31/2023 16:12:42 12/30/19 24 12/31/2023 CBC WITH DIFFE RENTI AL/PL ATELE T lymphs 16 % notest ab. Not Available [facility] ([facility]) [address] [facility], [place], [address], 12/31/2023 16:12:42 12/30/19 24 12/31/2023 CBC WITH DIFFE RENTI AL/PL ATELE T monocytes 8 % notest ab. Not Available [facility] ([facility]) [address] [facility], [place], [address], 12/31/2023 16:12:42 12/30/19 24 12/31/2023 CBC WITH DIFFE RENTI AL/PL ATELE T eos 1 % notest ab. Not Available [facility] ([facility]) [address] [facility], [place], [address], 12/31/2023 16:12:42 12/30/19 24 12/31/2023 CBC WITH DIFFE RENTI AL/PL ATELE T basos 0 % notest ab. Not Available [facility] ([facility]) [address] [facility], [place], [address], 12/31/2023 16:12:42 06/17/20 24 12/31/2023 CBC WITH DIFFE RENTI AL/PL ATELE T neutrophils (absolute) 10.9 x10e3 /uL 1.4-7. 0 above high normal Not Available [facility] ([facility]) [address] [facility], [place], [address], 12/31/2023 16:12:42 12/30/19 24 12/31/2023 CBC WITH DIFFE RENTI AL/PL ATELE T lymphs (absolute) 2.2 x10e3 /uL 0.7-3. 1 Not Available [facility] ([facility]) [address] [place], [address], 12/31/2023 16:12:42 12/30/19 24 12/31/2023 CBC WITH DIFFE RENTI AL/PL ATELE T monocytes(ab solute) 1.2 x10e3 /uL 0.1-0. 9 above high normal Not Available [facility] ([facility]) [address] [facility], [place], [address], 12/31/2023 16:12:42 12/30/19 24 12/31/2023 CBC WITH DIFFE RENTI AL/PL ATELE T eos (absolute) 0.1 x10e3 /uL 0.0-0. 4 Not Available [facility] ([facility]) [address] [place], [address], 12/31/2023 16:12:42 12/30/19 24 12/31/2023 CBC WITH DIFFE RENTI AL/PL ATELE T baso (absolute) 0.1 x10e3 /uL 0.0-0. 2 Not Available [facility] ([facility]) [address] [place], [address], 12/31/2023 16:12:42 12/30/19 24 12/31/2023 CBC WITH DIFFE RENTI AL/PL ATELE T immature granulocytes 0 % notest ab. Not Available [facility] ([facility]) [address] [facility], [place], [address], 12/31/2023 16:12:42 12/30/19 24 12/31/2023 CBC WITH DIFFE RENTI AL/PL ATELE T immature grans (abs) 0.0 x10e3 /uL 0.0-0. 1 Not Available [facility] ([facility]) [address] [facility], [place], [address], 12/31/2023 16:12:42 03/19/20 24 03/19/2024 MAMMO , diagn ostic , digit al, bilat eral No observ [facility]ion [facility] ed[facility] [address] [place], [address], 03/26/2024 12:02:00 03/19/20 24 03/19/2024 MAMMO , diagn ostic , digit al, bilat eral No observ ation record ed. [facility] [address] [place], [address], 03/26/2024 12:02:01 Result Notes None recorded. Problems Name Problem SNOMED Code Status Onset Date Resolution Date Notes Provider Name and Address Organization Details Recorded Time Tobacco dependen ce syndrome 52327374 Completed 201807/01/2019 MARI JULES NP Attn: Tasha g,[address] [facility], [place], [address], [facility] 9 14:00:04 Hyperlip idemia 25436425 Active 2020 MARI JULES NP Attn: Tasha g,[address] [facility], [place], [address], [facility] - [facility] 4 11:21:24 Bipolar disorder 72563683 Active 2023 MARI JULES NP Attn: Tasha g,[address] [facility], [place], [address], [facility] - [facility] 4 11:40:24 Pruritic rash 75278541 Active 2023 MARI JULES NP Attn: Tasha lino,[address] [facility], [place], [address], [place] - [facility] 4 16:58:17 Major depressi ve disorder 420641687 Active 2023 MARI JULES NP Attn: Tasha lino,[address] [facility], [place], [address], [place] [facility] 4 12:22:33 Impingem ent syndrome of left shoulder region 44859972181 9104 Active 2023 MARI JULES NP Attn: Tasha lino,[address] [facility], [place], [address], [place] [facility] 4 12:29:42 Lateral epicondy litis of left humerus 06182159293 9100 Active 2024 MARI JULES NP Attn: Tasha lino,[address] [facility], [place], [address], [place] [facility] 5 13:44:10 Anxiety 53431360 Active MARI JULES NP Attn: Tasha lino,[address] [facility], [place], [address], [place] [facility] 4 11:21:21 Urinary symptoms 282879358 Active Jeanne Cha [place] null, [place] [facility] 6 11:54:05 Inguinal pain 819905563 Active Jeanne Cha [place], [place] [facility] 6 11:54:05 Impotenc e Active Jeanne Cha [place] [facility] 6 11:54:05 Gynecoma stia 7195074 Active with hx left mastecto my MARI JULES, [place] Attn: Tasha lino,[address] [facility], [place], [address], [place] - [facility] 4 11:20:51 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 MARI JULES NP Attn: Accountin g,[address] [facility], [place], [address], [place] [facility] 4 11:21:17 Methadon e dependen ce 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 MARI JULES NP Attn: Accountin g,[address] [facility], [place], [address], [place] [facility] 4 11:21:08 Left inguinal hernia 180249617 Active Jeanne Cha [place] null, [place] [facility] 6 11:54:05 Chronic back pain 328353101 Active MARI JULES NP Attn: Accountin g,[address] [facility], [place], [address], [place] [facility] 4 11:20:55 Hepatiti s C antibody detected 095273279 Active Jeanne Cha [place], [place] [facility] 6 11:54:05 Disorder of wrist 871389804 Active Jeanne Cha [place] [facility] 6 11:54:05 Opioid dependen ce 32665181 Active Jeanne Cha [place] null, [place] [facility] 6 11:54:05 Chronic hepatiti s C 339766720 Active MARI JULES NP Attn: Accountin g,[address] [facility], [place], [address], [place] [facility] 4 11:20:59 Gastroes ophageal reflux disease 271697225 Active MARI JULES NP Attn: Accountin g,[address] [facility], [place], [address], [place] [facility] 4 11:21:03 Hemoglob in below referenc e range 654497240 Active Cyn Pina [place], [place] [facility] 6 12:43:10 Constipa tion 30741905 Active Cyn Pina null, [place] [facility] 6 18:41:01 Internal hemorrho ids 38888567 Active 2015 Samantha sandhu, [place] - [place] 6 17:45:12 Normocyt ic anemia 969920689 Active 2016 Samantha sandhu, [place] - [facility] 7 10:36:14 Thyroid nodule 635839848 Active 2016 CHICO TANG NP Attn: Tasha lino,[address] [facility], [place], [address], [facility] - [facility] 7 16:03:27 Abdomina l aortic atherosc lerosis 240103852 Active 2016 Jeanne Cha MA null, [place] - [facility] 7 17:02:12 Notes:CT Chest no suspicious nodules and US scrotum/testes reviewed testicular cyst varicocele and hydroceles 12/03/14 Problem Notes None recorded. Procedures Surgical History Date Name Laterality Status Provider Name and Address Organization Details Recorded Time 04/27/2016 Colon ca scrn not hi rsk ind completed Cyn Pina [facility] 05/14/2016 18:25:25 Hernia Repair completed Billie Rosen RN [facility] 08/05/2014 10:38:57 Other completed Billie Rosen RN [facility] 08/05/2014 10:38:57 Other completed Billie Rosen RN [facility] 08/05/2014 10:38:57 Imaging Results Imaging Date Name Status [facility] Details LastModified Time 03/19/2024 MAMMO, diagnostic, digital, bilateral completed PÉREZRIANNA Jaeger [address] [place], [address], 03/26/2024 12:02:00 03/19/2024 MAMMO, diagnostic, digital, bilateral completed PÉREZ Jaeger [address] [place], [address], 03/26/2024 12:02:01 Procedure Notes None recorded. Medical Equipment None Reported. Allergies Allergen ID Allergen Name Allergen Category Reaction Reaction Severity Criticality Documentation Date Start Date Code Code System Note Provider Name and Address Organization Details Recorded Time 542649 fluticaso ne Not available vomiting Not available Not available 08/28/2021 25914 RxNorm Not Available Not Available Not Available 61242 Iodinated contrast media (substanc e) medicatio n Not available Not available Not available 08/05/2014 00553 2004 SNOMED Not Available Not Available Not Available 41651 fluconazo le medicatio n Not available Not available Not available 08/05/2014 4450 RxNorm Not Available Not Available Not Available 64358 influenza virus vaccine, specific Not available anaphylax is severe Not available 10/25/2014 11291 UNK Not Available Not Available Not Available Medications Name Sig Start Date Stop Date Status Note LastModified by Organization Details LastModified Time cyclobenz aprine 10 mg tablet Take 1 tablet as needed by oral route up to twice a day 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 02/14 completed Not Available Not Available Not Available atorvasta tin 40 mg tablet TAKE 1 TABLET BY MOUTH EVERY DAY IN THE EVENING 12/29 completed Not Available Not Available Not Available nystatin 100,000 unit/mL oral suspensio n Take 5 mL 4 times a day by oral route for 10 days. 12/29 completed Not Available Not Available Not Available doxycycli ne hyclate 100 mg capsule 01/27 completed Not Available Not Available Not Available atorvasta tin 20 mg tablet 12/29 completed Not Available Not Available Not Available citalopra m 40 mg tablet TAKE 1 TABLET BY MOUTH EVERY MORNING 11/09 completed Not Available Not Available Not Available BD Luer-Meagan Syringe 3 mL 25 x 5/8 USE TO INJECT TESTOSTE MIGUELINA EVERY WEEK active Not Available Not Available No t Available fexofenad ine 60 mg tablet TAKE 1 TABLET BY MOUTH TWICE DAILY 04/19 completed Not Available Not Available Not Available methadone 10 mg/5 mL oral solution TAKE 130 mg BY ORAL ROUTE QD 04/[address] Pena Not Available Not Available Not Available azithromy yovany 250 mg tablet TK 2 TS PO ON DAY 1, THEN TK 1 T PO D FOR 4 DAYS 08/10 completed Not Available Not Available Not Available ibuprofen 800 mg tablet TAKE 1 TABLET BY MOUTH EVERY 8 HOURS NEEDED FOR PAIN RELIEF 12/29 completed Not Available Not Available Not Available benzonata te 200 mg capsule Take 1 capsule 3 times a day by oral route for 10 days. 08/24 completed Not Available Not Available Not Available senna 8.6 mg tablet TAKE 1 TO 2 TABLETS BY MOUTH DAILY NEEDED FOR MANAGEME NT OF CHRONIC CONSTIPA TION 04/19 completed Not Available Not Available Not Available methadone 10 mg tablet takes 24mg per day. Currentl y detoxing . active Not Available Not Available No t Available minocycli ne 100 mg capsule active Not Available Not Available Not Available Medrol (Lam) 4 mg tablets in a dose pack Take 1 tablet every day by oral route. 2023 active Not Available Not Available Not Avai lable prednison e 20 mg tablet TAKE 1 TABLET BY MOUTH DAILY 01/27 completed Not Available Not Available Not Available clonazepa m 0.5 mg tablet TAKE 1/2 TABLET BY MOUTH TWICE DAILY FOR 7 DAYS 11/09 completed Not Available Not Available Not Available permethri n 5 % topical cream APPLY TOPICALL Y TO THE AFFECTED AREA 1 TIME. LEAVE ON FOR 8 TO 14 HOURS BEFORE WASHING OFF 04/19 completed Not Available Not Available Not Available sulfameth oxazole 800 mg-trimet hoprim 160 mg tablet TAKE 1 TABLET BY MOUTH EVERY 12 HOURS 04/19 completed Not Available Not Available Not Available aspirin 81 mg tablet,de layed release TAKE 1 TABLET BY MOUTH ONCE A DAY 12/29 completed Not Available Not Available Not Available tramadol 50 mg tablet TAKE 1 TABLET BY MOUTH EVERY 6 HOURS NEEDED FOR MODERATE TO SEVERE PAIN 12/29 completed Not Available Not Available Not Available triamcino lone acetonide 0.1 % topical cream APPLY A THIN LAYER TO THE AFFECTED AREA(S) BY TOPICAL ROUTE 2 TIMES PER DAY active Not Available Not Available No t Available Dulcolax (bisacody l) 10 mg rectal supposito ry Insert 1 supposit ory every day by rectal route as needed. 02/14 completed Not Available Not Available Not Available alprazola m 0.5 mg tablet PRN 04/18 completed Not Available Not Available Not Available alprazola m 0.25 mg tablet active Not Available Not Available Not Available Celexa 20 mg tablet Take 1 tablet every day by oral route. active Dr Ward Not Available Not Available Not Available hydrocodo ne 7.5 mg-acetam inophen 325 mg tablet active Not Available Not Available Not Available cephalexi n 500 mg capsule 01/29 completed Not Available Not Available Not Available ranitidin e 150 mg tablet TAKE 1 TABLET(S ) TWICE A DAY BY ORAL ROUTE. 02/14 completed Not Available Not Available Not Available prednison e 50 mg tablet active Not Available Not Available Not Available docusate sodium 100 mg capsule TAKE 1 TO 2 CAPSULES BY MOUTH ONCE TO TWICE DAILY NEEDED FOR MANAGEME NT OF CHRONIC CONSTIPA TION 04/19 completed Not Available Not Available Not Available diclofena c sodium 75 mg tablet,de layed release TAKE 1 TABLET BY MOUTH TWICE DAILY WITH FOOD 02/14 completed Not Available Not Available Not Available mupirocin 2 % topical ointment APPLY TOPICALL Y TO THE AFFECTED AREA THREE TIMES DAILY 12/29 completed Not Available Not Available Not Available mirtazapi ne 15 mg tablet TAKE 1 TABLET BY MOUTH AT BEDTIME active Not Available Not Available No t Available ergocalci ferol (vitamin D2) 1,250 mcg (50,000 unit) capsule TAKE 1 CAPSULE BY MOUTH EVERY WEEK 12/29 completed Not Available Not Available Not Available testoster one cypionate 200 mg/mL intramusc ular oil INJECT 0.5 ML INTO THE MUSCLE INSTRUCT ED ONCE A WEEK active Not Available Not Available No t Available ibuprofen 600 mg tablet active Not Available Not Available Not Available polyethyl howard glycol 3350 17 gram/dose oral powder DIRECTED BEFORE COLONOSC OPY AND MIX 17G IN LIQUID AND DRINK EVERY DAY NEEDED FOR CONSTIPA TION 04/19 completed Not Available Not Available Not Available fluticaso ne propionat e 50 mcg/actua tion nasal spray,suzanne pension SHAKE LIQUID AND USE 2 SPRAYS IN EACH NOSTRIL DAILY 08/28 completed Not Available Not Available Not Available amoxicill in 875 mg-potass ium clavulana te 125 mg tablet active Not Available Not Available Not Available escitalop deisy 10 mg tablet TAKE 1 TABLET BY MOUTH DAILY active Not Available Not Available No t Available cyclobenz aprine 5 mg tablet TAKE 1 TABLET BY MOUTH THREE TIMES DAILY NEEDED FOR MUSCLE SPASMS 12/29 completed Not Available Not Available Not Available clonazepa m 0.25 mg disintegr ating tablet 02/24 completed Not Available Not Available Not Available Cialis 5 mg tablet Take 1 tablet every day by oral route. 02/14 completed Not Available Not Available Not Available Cialis 20 mg tablet Take 1 tablet(s ) prior to sexual activity every 2 days by oral route as needed. 2014 active Not Available Not Available Not Avai lable BD Integra Syringe 3 mL 25 gauge x 5/8 USE TO INJECT TESTOSTE MIGUELINA EVERY WEEK active Not Available Not Available No t Available sildenafi l (pulmonar y hypertens ion) 20 mg tablet TAKE 3 TO 5 TABLETS BY MOUTH BEFORE INTERCOU RSE NEEDED active Not Available Not Available No t Available methadone 1 tablet everyday 2020 active 70mg daily Not Available Not Available Not Available Rexulti 1 mg tablet TAKE 1 TABLET BY MOUTH DAILY active Not Available Not Available No t Available Narcan 4 mg/actuat ion nasal spray 11/09 completed Not Available Not Available Not Available Zepatier 50 mg-100 mg tablet 02/14 completed Not Available Not Available Not Available Vitals Date Recorded Body height Body mass index (BMI) Body weight Oxygen saturation Oxygen saturation in Arterial blood by Pulse oximetry Heart rate Respiratory rate Body temperature Systolic blood pressure Diastolic blood pressure Provider Name and Address Organization Details Last Updated DateTime 2 177.8 cm 28.3 kg/m2 00225.7 g 95 % 95 % 73 /min 16 /min 95.9 [degF] 114 mm[Hg] 62 mm[Hg] Hallie Garcia MA [place] - [facility] 2 09:58:59 Date Recorded Respiratory rate Body height Body mass index (BMI) Body weight Body temperature Heart rate Systolic blood pressure Diastolic blood pressure Provider Name and Address Organization Details Last Updated DateTime 4 16 /min 177.8 cm 26.5 kg/m2 46587.5 9 g 96.9 [degF] 64 /min 145 mm[Hg] 79 mm[Hg] Heather Byrd [place] - [facility] 4 11:18:41 Date Recorded Oxygen saturation Oxygen saturation in Arterial blood by Pulse oximetry Provider Name and Address Organization Details Last Updated DateTime 12/30/2023 94 % 94 % MARI JULES NP Attn: Accounting,[address] [place], [address], [facility] 12/30/2023 16:53:12 Date Recorded Body height Respiratory rate Body mass index (BMI) Body weight Body temperature Heart rate Oxygen saturation Oxygen saturation in Arterial blood by Pulse oximetry Systolic blood pressure Diastolic blood pressure Provider Name and Address Organization Details Last Updated DateTime 4 177.8 cm 16 /min 25.7 kg/m2 35311.7 3 g 96.8 [degF] 68 /min 96 % 96 % 138 mm[Hg] 82 mm[Hg] Heather Byrd MA [facility] 4 12:19:13 Date Recorded Body height Body mass index (BMI) Body weight Oxygen saturation Oxygen saturation in Arterial blood by Pulse oximetry Heart rate Respiratory rate Body temperature Systolic blood pressure Diastolic blood pressure Provider Name and Address Organization Details Last Updated DateTime 4 177.8 cm 25.9 kg/m2 49030.4 3 g 98 % 98 % 75 /min 16 /min 97 [degF] 121 mm[Hg] 75 mm[Hg] Gita Overton LPN [facility] 4 12:07:27 Date Recorded Body height Body mass index (BMI) Body weight Body temperature Respiratory rate Heart rate Oxygen saturation Oxygen saturation in Arterial blood by Pulse oximetry Systolic blood pressure Diastolic blood pressure Provider Name and Address Organization Details Last Updated DateTime 5 177.8 cm 25.7 kg/m2 93097.3 9 g 96.9 [degF] 16 /min 67 /min 93 % 93 % 125 mm[Hg] 82 mm[Hg] Nasrin Kaur MA [facility] 5 12:16:01 Social History Question Answer Notes LastModified by Organizat ion Details LastModified Time Tobacco Smoking Status Former Smoker quit 2012 DAVID Ruby, [facility] 02/19/2019 11:24:34 What Is Your Level Of Alcohol Consumption? None [email or web address] Information not available 02/19/2019 Are You Blind Or Do You Have Difficulty Seeing? No Information not available 11/09/2020 What Is Your Level Of Caffeine Consumption? Moderate 1 Cup Coffee Every Morning Information not available 08/18/2024 How Much Tobacco Do You Chew? None Information not available 02/19/2019 In The 14 Days Before Symptom Onset, Have You Had Close Contact With A Laboratory-confi rmed COVID-19 While That Case Was Ill? No Information not available 07/18/2021 In The 14 Days Before Symptom Onset, Have You Had Close Contact With A Person Who Is Under Investigation For COVID-19 While That Person Was Ill? No Information not available 07/18/2021 Have You Been To An Area Known To Be High Risk For COVID-19? No Information not available 07/18/2021 Are You Currently Employed? No Information not available 08/24/2021 Are You Deaf Or Do You Have Serious Difficulty Hearing? No Information not available 11/09/2020 What Type Of Diet Are You Following? REGULAR Information not available 02/19/2019 Which Illicit Or Recreational Drugs Have You Used? None Information not available 02/19/2019 Do You Or Have You Ever Used E-cigarettes Or Vape? Former User Of Electronic Cigarettes Information not available 08/24/2021 Education 10 [email or web address] Informati on not available 02/19/2019 What Is Your Occupation? Disability Was A [employer] For Years Information not available 02/19/2019 Are There Any Guns Present In Your Home? No Information not available 11/09/2020 Marital Status [email or web address] Informatio n not available 02/24/2015 What Was The Date Of Your Most Recent Tobacco Screening? 08/18/2024 Information not available 08/18/2024 How Many Children Do You Have? 1 Information not available 08/18/2024 What Is Your Relationship Status? Information not available 11/09/2020 Do You Use Your Seat Belt Or Car Seat Routinely? Yes [email or web address] Information not available 01/28/2024 Do You Have Smoke And Carbon Monoxide Detectors In Your Home? Yes Information not available 11/09/2020 At What Age Did You Start Smoking Tobacco? 18 Information not available 02/25/2020 Are You Passively Exposed To Smoke? No Information not available 11/09/2020 Do You Or Have You Ever Used Smokeless Tobacco? Never Used Smokeless Tobacco Information not available 02/19/2019 How Much Tobacco Do You Smoke? No Information not available 02/19/2019 General Stress Level High Information not available 02/19/2019 Do You Feel Stressed (tense, Restless, Nervous, Or Anxious, Or Unable To Sleep At Night)? [id number] Information not available 08/18/2024 Do You Use Any Illicit Or Recreational Drugs? Yes Marijuana Medical Information not available 08/24/2021 Do You Use Sunscreen Routinely? No Information not available 11/09/2020 Has Tobacco Cessation Counseling Been Provided? Yes tmond Information not available 02/19/2019 On What Date Was Tobacco Cessation Counseling Provided? 08/18/2024 Information not available 08/18/2024 How Many Years Have You Smoked Tobacco? 41 Information not available 02/25/2020 Do You Or Have You Ever Used Any Other Forms Of Tobacco Or Nicotine? No Information not available 07/18/2021 How Many Years Have You Used E-cigarettes Or Vape? 8 Information not available 08/24/2021 Sex: Male Functional Status Question Answer Note LastModified by Organization D etails LastModified Time Are you able to care for yourself? Yes Information n ot available 11/09/2020 What is your exercise level? None Information not available 02/19/2019 Mental Status None recorded. Family History Relationship Description Onset Age of this Age Resolved Age Notes LastModified by Organization Details LastModified Time Mother Alcohol abuse rreiter Not available 2015 11:54:05 Mother Depressive disorder rreiter Not available 2015 11:54:05 Father Alcohol abuse rreiter Not available 2015 11:54:05 Father Anxiety rreiter Not available 0 01/24/2016 11:54:05 Father Depressive disorder rreiter Not available 2015 11:54:05 Father Disease of liver rreiter Not available 2015 11:54:05 Father Disorder of thyroid gland rreiter Not available 2015 11:54:05 Sister Alcohol abuse rreiter Not available 2015 11:54:05 Sister Depressive disorder rreiter Not available 2015 11:54:05 Sister Substance abuse rreiter Not available 2015 11:54:05 Notes:No new reported 2, 08/28/21 Medical History Condition Response Other Y Depression Y Anxiety Disorder Y Muscle, Joint, or Bone Problems Y Cancer Y Headaches Y Skin Problems Y Seizures/Epilepsy Y Past Encounters Encounter ID Performer Location Encounter Start Date Encounter Closed Date Diagnosis/Indication Diagnosis SNOMED-CT Code Diagnosis ICD10 Code Diagnosis Note [id number] Adelaida Shaver LPN [facility] [address] [place] [address] 10/25/2014 11:40:53 10/27/2014 15:28:37 Urinary symptoms 779130280 decreased flow and difficult start Inguinal pain 531715166 left groin pain hx of hernia [id number] yrs ago Impotence 210229615 [id number] Billie Rosen RN [facility] [address] [place] [address] 01/20/2015 11:19:41 01/26/2015 17:11:18 Left inguinal hernia 802507050 left Chronic back pain 204381206 Methadone dependence 497301979 Impotence 552272219 [id number] Liz England [facility] [address] [place] [address] 02/24/2015 10:30:51 02/25/2015 11:37:24 Hepatitis C antibody detected 265977798 Chronic back pain 761752361 Methadone dependence 553581973 [id number] Liz England [facility] [address] [place] [address] 03/24/2015 10:52:38 03/30/2015 12:51:48 Disorder of wrist 789333771 left thumb and wrist Impotence 206138165 [id number] [facility] [address] [place] [address] 03/30/2015 10:15:56 04/01/2015 17:29:33 Hepatitis C antibody detected 713645793 54 y/o C male Dx +HCV Ab ~ 2004 prior entry into a methadone program. Risk Factor: +IVDU He has never been worked up/is Treatment na ve. Has not injected drugs x 12 years and is in a methadone program. He does not drink EtOH. January 2015: HCV Ab: Positive AST: 55 ALT: 75 Bili T: 0.3 Alb: 4.2 PLT: 161 Will begin workup today. Pt given an order for a RUQ U/S RTC 1 month to discuss lab results. Opioid dependence 99626678 Methadone 40mg daily [id number] BARBI Madrid [facility] [address] [place] [address] 06/01/2015 14:01:09 06/02/2015 12:28:45 Chronic hepatitis C 054701294 B18.2 Genotype 1b March 2015: RNA: 785K IU/mL Fibrosis score: F2 PLT: 153 BiliT: 0.5 Alb: 4.3 L3%: Not detected BsAg: Neg BsAb: Positive AST: 48 ALT: 64 Lengthy discussion about significan ce of his Fibrosis score and current CT Medicaid HCV Tx restrictio ns. Plan: Please RTC 12 months to repeat Fibrosis score. Do no drink EtOH Scheduled for a RUQ U/S tomorrow. Opioid dependence 880626 00 F11.20 Methadone 40mg daily [id number] Cyn Pina [facility] [address] [place] [address] 01/24/2016 11:39:07 01/30/2016 11:54:45 Chronic back pain 918521223 M54.9 Methadone dependence 231 610021 F11.20 Z79.899 Non-Hodgki n's lymphoma of lung 221337439 C85.99 Anxiety 82594026 F41.9 Gastroesop hageal reflux disease 000637470 K21.9 Hemoglobin below reference range 780569074 D64.9 Constipation 82629963 K5 9.00 [id number] Cyn Pina [facility] [address] [place] [address] 08/28/2016 11:03:29 08/31/2016 15:00:54 Chronic back pain 443017671 M54.9 Constipation 93316764 K5 9.09 Chronic hepatitis C 1283 75117 B18.2 Mixed anxi ety and depressive disorder 111764842 F34.1 Positive s creening for depression on PHQ-9 (Patient Health Questionnaire 9) 4234577890 28006 Z13.89 Takes anxiety and anti-depre ssant meds, in counseling at methadone clinic Low back pain 544606937 M54.5 [id number] CHICO TANG NP [place] [address] 12/18/2016 11:04:53 12/19/2016 16:47:31 Rib pain 370996191 R07.81 [id number] CHICO TANG NP [place] [address] 5 02/14/2017 14:54:00 02/20/2017 10:09:37 Atherosclerosis of aorta 87174696 I70.0 Non-Hodgki n's lymphoma of lung 477087930 C85.99 Methadone dependence 231 233616 F11.20 [id number] CHICO TANG NP [place] [address] 5 10/14/2017 16:11:14 10/15/2017 14:57:34 Abdominal aortic atherosclerosis 005637805 I70.0 Chronic hepatitis C 1283 74516 B18.2 Non-Hodgki n's lymphoma of lung 195673489 C85.99 [id number] CHICO TANG NP [place] [address] 5 01/27/2018 14:26:26 02/04/2018 14:06:52 Abdominal aortic atherosclerosis 363462921 I70.0 [id number] CHICO TANG NP [place] [address] 5 04/18/2018 10:28:21 04/18/2018 14:51:44 Thyroid nodule 681021693 E04.1 [id number] CECELIA CANTOR [place] [address] 5 02/19/2019 11:16:23 02/20/2019 12:47:48 Methadone dependence 427397986 F11.20 -Pt managed at suboxone clinic as reported by pt Thyroid nodule 320063040 E04.1 -Pt with history of nodule; had not followed through with referral/o rders for management -Will re-assess lab indices and re-eval for nodule; management from there may include referral to IR Skin lesion 61121678 L98 .9 -Pt presents with skin lesion that appears as a bug bite-Lesio n is localized, non-evolvi ng, non-tender ; reddened skin surroundin g insect bite-Manag e with topical steroid Gynecomastia 6774826 N62 -Pt with history of gynecomast ia managed by general surgery after referral-R ecommendat ion was made for repeat mammogram- Management today is to refer for resumed management with repeat mammogram Nicotine d ependence with current use 215632455 F17.200 -Pt is a current smoker-Pt advised in the derogatory effects of smoking-Co unseling for smoking cessation completed Screening for disorder 822647577 Z13.9 -Routine Recommende d screening- PHQ9 completed and filed-Lab essay for eval and management ; pt non-compli ant with completion previous lab orders [id number] Kim Montes [facility] [address] [place] [address] 05/05/2019 15:37:43 05/06/2019 13:54:00 Upper respiratory infection 47644657 J06.9 - Drink lots of fluids, mainly water. - Run a cool-mist humidifier in your room at night. - For sore throat, gargle warm salt water. - Get extra rest and do not over-exert yourself. - Do not mix multiple medication s with similar ingredient s (for instance Theraflu Non-drowsy and Tylenol Sinus). Doubling up on acetaminop hen and/or decongesta nts such as pseudephed rine can be dangerous. - Do not take decongesta nts if you have high blood pressure Tobacco de pendence syndrome 75270623 F17.200 - Patient is a current cigarette smoker, states he smokes 1./2pk per day and currently has no desire to quit.- Patient advised in the derogatory effects of smoking- Counseling for smoking cessation completed Influenza vaccination declined 893282353 Z28.21 - flu vaccine respectful ly declined due to anaphylaxi s. [id number] MARI JULES NP [facility] [address] [place] [address] 2019 10:24:26 07/02/2019 11:26:49 Gastroesophageal reflux disease 613244821 K21.9 - discussed the follow non pharmacolo gical ways the patient can help manage her reflux: -Avoid lying flat 3 to 4 hours after eating or drinking. - Avoid tight clothing around the waist. - Decrease dietary fat intake. - Avoid acidic foods (citrus and tomato-bas ed products), alcohol, caffeinate d beverages, chocolate, onions, garlic, salt, and peppermint oil. - Avoid large meals. - Avoid drinking coffee, or carbonated beverages. - Weight loss can help with symptoms, try to diet and exercise. - Stop smoking. Electronic cigarette user 895696664 Z72.0 - Patient currently Vapes- Patient advised in the derogatory effects of Vaping- Patient verbalized understand ing of the dangers. [id number] MARI JULES [facility] [address] [place] [address] 07/06/2019 09:45:50 07/06/2019 17:47:34 [id number] MARI JULES [facility] [address] [place] [address] 07/30/2019 17:11:58 07/31/2019 09:57:21 Testosterone level below reference range 962110932 R79.89 - 06/2019 fasting free and total testostero ne level 238, and 3.3- 07/2019 repeat fast free and total Testostero n level 260, and 4.8 [id number] MARI JULES [address] [address] 11/26/2019 14:22:38 11/27/2019 07:55:29 Gastroesophageal reflux disease 151404540 K21.9 - discussed the follow non pharmacolo gical ways the patient can help manage her reflux: -Avoid lying flat 3 to 4 hours after eating or drinking. - Avoid tight clothing around the waist. - Decrease dietary fat intake. - Avoid acidic foods (citrus and tomato-bas ed products), alcohol, caffeinate d beverages, chocolate, onions, garlic, salt, and peppermint oil. - Avoid large meals. - Avoid drinking coffee, or carbonated beverages. - Weight loss can help with symptoms, try to diet and exercise. [id number] CARRINGTON OLVERA [place] [address] [place] [address] 02/25/2020 12:25:45 02/26/2020 06:30:05 Abdominal aortic atherosclerosis 802720200 I70.0 Gastroesop hageal reflux disease 173720391 K21.9 - discussed the follow non pharmacolo gical ways the patient can help manage her reflux: -Avoid lying flat 3 to 4 hours after eating or drinking. - Avoid tight clothing around the waist. - Decrease dietary fat intake. - Avoid acidic foods (citrus and tomato-bas ed products), alcohol, caffeinate d beverages, chocolate, onions, garlic, salt, and peppermint oil. - Avoid large meals. - Avoid drinking coffee, or carbonated beverages. - Weight loss can help with symptoms, try to diet and exercise. [id number] CARRINGTON OLVERA [facility] [address] [place] [address] 08/09/2020 08:31:53 08/10/2020 20:19:32 Sore throat 487741412 J02.9 - Use over-the-c ounter throat lozenges to soothe pain. - drink plenty of fluids, ( warm/hot teas, or soups may help decrease throat pain).- RTC with worsening symptoms [id number] CARRINGTON Lucero [address] [place] [address] 08/09/2020 12:41:09 08/10/2020 07:52:30 Viral screening 803863440 Z11.52 D/w pt the current pandemic of COVID-19 and call for social isolation in order to blunt the curve and minimize risk and spread. Encouraged patient and family to take restrictio ns seriously. They have verbalized understand ing of such. Viral syndrome 162639527 B34.9 [id number] CARRINGTON L[place]A [place] [address] [place] [address] 11/09/2020 09:22:20 11/10/2020 15:33:30 Chronic constipation 265845105 K59.09 - Recommend to increase fiber content in diet with more fruits and vegetable. - Drink plenty of water. - Take medication as prescribed , if getting worse go to ER. - If no improvemen t in 1-2 weeks, return to clinic for further assessment or follow up with Alana dugan [id number] CARRINGTON OLVERA [address] [facility] [place] [address] 04/19/2021 11:07:28 04/20/2021 14:44:22 Adult health examination 204528091 Z00.00 - Discussed with patient findings, diagnoses, and prognosis. - Discussed plan of care including treatment options, risks, and benefits with patients. Patient expressed understand ing.- The following interventi ons were recommende d: heart healthy low-fat, low-sodium diet, ideal body weight, regular exercise, medication s compliance , and medical follow-up as noted. Mass of left breast 1224 909143 5997692 N63.20 - No lump felt upon examinatio n.- Dwp likely felt a swollen lymph node, and to monitor.- RTC for any new or concerning symptoms, Patient verbalized understand ing [id number] CARRINGTON OLVERA [address] [facility] [place] [address] 07/18/2021 08:40:32 07/20/2021 15:10:07 Respiratory tract congestion and cough 734337252 R05.9 - Patient encourage to monitor symptoms and seek emergency medical care if he develops difficulty breathing, chest pain or pressure, or any concerning symptoms History of SARS-CoV-2 29 11957885 73031434 Z86.16 - Patient states he was diagnosed with with COVID in june, his quarantine was over . Patient states he was felt better up until 3 days ago now feels like he has COVID again [id number] CARRINGTON OLVERA [address] [facility] [place] [address] 08/07/2021 09:07:00 08/10/2021 22:02:14 Viral syndrome 189008621 B34.9 - ER 07/30, chest xray WNL- Urgent care 08/05, prescribed anbx- Drink lots of fluids, mainly water.- For sore throat, gargle warm salt water.- Get extra rest and do not over-exert yourself.- Continue benzonatat e as prescribed [id number] MD Mil Cohen [address] [facility] [place] [address] 08/24/2021 07:59:42 08/28/2021 13:01:29 History of SARS-CoV-2 2664637444 96545336 Z86.16 Candidiasis of mouth 797 26612 B37.0 [id number] MD Mil Cohen [address] [facility] [place] [address] 08/28/2021 09:44:45 08/30/2021 11:20:30 History of non-Hodgkins lymphoma 465158702 Z85.72 pt had been seeing an oncologist annually but became lost to follow up History of SARS-CoV-2 29 07075745 15049299 Z86.16 Vitamin D deficiency 347 57757 E55.9 Health con dition feared but not present 9882037635 24015 Z71.1 pt has not lost wt, neither were concerning lesions seen in the oropharynx nor were any enlarged lymph nodes detected [id number] MARI JULES NP [facility] [address] [place] [address] 12/30/2023 10:50:46 12/31/2023 13:59:37 Gynecomastia 1490650 N62 Non-Hodgki n's lymphoma of lung 659218205 C85.99 Stable Pruritic rash 24962383 L 28.2 - Stable, improving with medication Major depr essive disorder [id number] F32.9 - DWP will restart Rexuti 1 mg daily- F/u in 1 month- Patient to schedule appointmen t with [facility] examination [id number] Z00.00 - Discussed with patient findings, diagnoses, and prognosis. - Discussed plan of care including treatment options, risks, and benefits with patients. Patient expressed understand ing.- The following interventi ons were recommende d: heart healthy low-fat, low-sodium diet, ideal body weight, regular exercise, medication s compliance , and medical follow-up as noted. Hyperlipidemia [id number] E78.5 [id number] MARI JULES NP [facility] [address] [place] [address] 01/28/2024 11:53:30 02/03/2024 13:18:49 Adult health examination [id number] Z00.00 Health Risk Assessment collected and reviewed Overweight [id number] E66 .3 advised low fat, low cholestero l, low carb diet, regular exercise and weight reduction. Major depr essive disorder [id number] F32.9 - Patient states he has appointmen t with here at [facility] on 02/03- Continue Rexuti 1 mg daily [id number] MARI JULES NP [facility] [address] [place] [address] 06/30/2024 11:56:03 07/16/2024 14:16:34 Impingement syndrome of left shoulder region [id number] 55184 M75.42 Major depr essive disorder [id number] F32.9 - Dr. Bustamante following and managing care. [id number] MARI JULES NP [facility] [address] [place] [address] 08/18/2024 11:58:37 09/07/2024 13:26:38 Lateral epicondylitis of left humerus [id number] 95126 M77.12 The patient s 2-3 week history of left elbow pain, aggravated by lifting and localized to the lateral elbow, is consistent with lateral epicondyli tis. There is no history of trauma, and no swelling or bruising is noted, supporting this diagnosis. Advised the patient to rest the affected elbow and avoid repetitive motions that exacerbate the pain.Recom mended over-the-c ounter NSAIDs for pain relief. Major depr essive disorder [id number] F32.9 - Dr. Bustamante following and managing care. Health Concerns Section Related Observation LastModified by Organization Detai ls LastModified Time None Recorded Concern Status LastModified by Organization Details LastModified Time None Recorded Advance Directives Directive None Recorded Payers Encounter Date Sequence Insurance Name Policy Number Policy Munoz Covered Member ID Munoz Member ID Guarantor Name 08/28/2021 1 [place] David Bryan [id number] David Bryan 08/28/2021 2 [place] OR MEDICARE REPLACEMENT PRIMARY) David Bryan [id number] David Bryan 12/30/2023 1 [place] David D Stilts [id number] David Derrell Stilts 12/30/2023 2 [place] REPLACEMENT PRIMARY) David Stilts [id number] Dvaid Derrell Stilts 01/28/2024 1 [place] David D Stilts [id number] David Derrell Stilts 01/28/2024 2 [place] REPLACEMENT PRIMARY) David Stilts [id number] David Derrell Stilts 06/30/2024 1 [place] David D Stilts [id number] David Derrell Stilts 06/30/2024 2 [place] OR [place] REPLACEMENT PRIMARY) David Stilts [id number] David Derrell Stilts 08/18/2024 1 [place] David D Stilts [id number] David Derrell Stilts 08/18/2024 2 [place] OR MEDIC[place] REPLACEMENT PRIMARY) David Stilts [id number] David Derrell Stilts Notes Date Note Type Note Provider Name and Address Organization Details Recorded Time 08/28/2021 text/html Pt presents in p erson with his sister, concerned about an area at left pharynx. He has a remote hx of non-Hodgkin's lymphoma Dwight Esteves MD Attn: Accounting,[address] [place], [address], [place] [facility] 08/29/2021 13:24:59 12/30/2023 text/html Anxiety/Depressi onRepo rted bypatient.Quality:mood worse;increased anxiety Severity:denies suicidal ideations Context:major life stressors Associated Symptoms:denies homicidal ideations; no visual/auditory hallucinations;anxiety ;depression;insomniaRa sh/Skin Lesion F/UReported bypatient.Location:[facility] ([facility]) Quality:not painful; not bleeding;itchy Severity:improving Duration:has noted for 3-4 weeks Context:no new detergents or skin products; no one else with similar rash; not scratching Associated Symptoms:no fever Mr. Bryan came into the office today to reestablish care and ER follow-up. On December 27, the patient presented to [facility] for assessment of a pruritic rash on his left lateral thigh. MARI JULES NP Attn: Accounting,[address] [facility], [place], [address], [facility] 12/30/2023 16:59:17 01/28/2024 text/html Anxiety/Depressi onRepo rted bypatient.Quality:mood worse;increased anxiety Severity:denies suicidal ideations Duration:symptoms lasting over 2 weeks Onset/Timing:still present Context:major life stressors;tobacco use Modifying Factors:medications as directed Associated Symptoms:denies homicidal ideations;depression;i nsomniaMAW 2Reported bypatient.Diet and Nutrition:discussed vitamin and supplement use; discussed diet improvement Fracture Risk:no history of fractures; no sudden unexplained fractures Concentration and Memory:no decreased concentrating ability; no memory lapses or loss; does not forget words Speech/Motor difficulties:no speech difficulties; no difficulty expressing formulated concepts; no difficulty with fine manipulative tasks; no difficulty writing/copying; no slowed reaction time; does not knock things over when trying to pick them up Hearing:no loss of hearing Vision:no vision problems Activities of Daily Living:able to bathe with limited or no assistance; able to contol urination and bowels; able to dress with limited or no assistance; able to feed self with limited or no assistance; able to get out of chair or bed with limited or no assistance; able to groom with limited or no assistance; able to toilet with limited or no assistance Instrumental Activities of Daily Living:able to do house work with limited or no assistance; able to grocery shop with limited or no assistance; able to manage medications with limited or no assistance; able to manage money with limited or no assistance; able to prepare meals with limited or no assistance; able to use the phone with limited or no assistance Falls Risk Assessment:no frequent falls while walking; no fall in the past year; no fall since last visit; no dizziness/vertigo Home Safety:no unsafe neelam hazzards; no unsafe stairs; working smoke/CO detectors; no fire arms; has hand bars in the bathroom/shower; good lighting in the home Mr. Bryan presented in office today for follow up appointment, and Medicare wellness exam. MARI JULES NP Attn: Accounting,[address] [facility], [place], [address], [facility] 02/01/2024 14:24:05 06/30/2024 text/html ShoulderReported bypatient.Location:[facility] Quality:aching; throbbing; worsening Severity:moderate Duration:1 years Timing:chronic Alleviating Factors:nothing helps Associated Symptoms:no weakness; no swelling; no redness;numbness;radia tion down arm Mr. Bryan presents for follow-up with complaints of left shoulder pain that radiates down to the left elbow, causing numbness. The symptoms have been present for the past year and have progressively worsened over time. MARI JULES NP Attn: Accounting,[address] [facility], [place], [address], [facility] 07/15/2024 22:21:50 08/18/2024 text/html Elbow/ForearmRep orted bypatient.Location:lef t (elbow); lateral Quality:aching; gnawing Severity:moderate Context:atraumatic Alleviating Factors:nothing helps Aggravating Factors:lifting Associated Symptoms:no weakness; no numbness; no tingling; no swelling; no redness; no warmth Mr. Alamo presents with a complaint of left elbow pain that has been present for the past 2-3 weeks. He denies any specific injury or trauma to the elbow. MARI JULES NP Attn: Accounting,[address] [facility], [place], [address], [facility] 09/05/2024 13:48:56
--- OUTSIDE RECORDS SUMMARY | 2024-10-15 14:23 | XMS_ITS | Encounter Summary ---
Author Organization [facility] Address [address] [facility] [place] [address] Phone Care Team Providers Care Licensed Sales Producer Name Role Phone Bladimir Sanz MD Primary Care Provider [phone] Reason for Referral * PT/OT/ST (Routine) - Authorized Specialty Diagnoses / Procedures Referred By Ananda villaseñor Referred To Contact Physical Therapy Diagnoses Impingement syndrome of left shoulder region Mari Calvo APRN, ROAD TEST EXAMINER [address] [place] [address] Phone: tel: fax: [facility] at [address], [address] [address] Phone: tel: fax: Referral ID Status Reason Start Date Expiration Date V isits Requested Visits Authorized [id number] Authorized 07/16/2024 50 60 Scheduling Instructions Y MAN Encounter Details Date Type Department Care Team (Latest Contact Info) Description 07/16/2024 Transcribe Orders [facility] [address] [place] [address] Mari Calvo APRN, ROAD TEST EXAMINER [address] [place] [address] Impingement syndrome of left shoulder region (Primary Dx) Social History Tobacco Use Types Packs/Day Years Used Date Smoking Tobacco: Former Cigarettes Smokeless Tobacco: Never Alcohol Use Standard Drinks/Week Comments Never 0 (1 standard drink = 0.6 oz pur e alcohol) PHQ-2 Answer Date Recorded Total Score - Questions 1-9 19 04/15 Education Answer Date Recorded What is the highest level of school you have completed or the highest degree you have received? 9th grade 05/07/2023 Sex and Gender Information Value Date Recorded Sex Assigned at Not on file Legal Sex Male 11:58 PM CDT Gender Identity Not on file Sexual Orientation Not on file documented as of this encounter Plan of Treatment Upcoming Encounters Date Type Department Care Team (Late st Contact Info) Description 10/20/2024 9:45 AM CDT Occupational Therapy [facility] at [address], [address] [id number] Mari Calvo, QUARANTINE INSPECTOR, ROAD TEST EXAMINER [address] [place] [address] Cadence Hairston OT [place] 10/20/2024 10:30 AM CDT Physical Therapy [facility] at [address], [address] [id number] Mari Calvo, QUARANTINE INSPECTOR, ROAD TEST EXAMINER [address] [place] [address] Tamy Bose, PT [place] 10/27/2024 9:45 AM CDT Occupational Therapy [facility] at [address], [address] [phone] Mari Calvo, QUARANTINE INSPECTOR, ROAD TEST EXAMINER [address] [place] [address] Cadence Hairst[place] OT [place] 11/03/2024 9:45 AM CDT Occupational Therapy [facility] [address], [address] [place] [address] Umesh, Mari A, QUARANTINE INSPECTOR, ROAD TEST EXAMINER [address] [place] [address] Cadence Hairston [place] 11/17/2024 9:45 AM CDT Occupational Therapy [facility] [address], [address] [place] [address] Umesh, Mari A, QUARANTINE INSPECTOR, ROAD TEST EXAMINER [address] [place] [address] Cadence Hairston OT [place] 11/24/2024 9:45 AM CDT Occupational Therapy [facility] [address], [address] [place] [address] Umesh, Mari A, QUARANTINE INSPECTOR, ROAD TEST EXAMINER [address] [place] [address] Cadence Hairston OT [place] 12/01/2024 9:45 AM CDT Occupational Therapy [facility] [address], [place] [address] [place] [address] Umesh, Mari A, QUARANTINE INSPECTOR, ROAD TEST EXAMINER [address] [place] [address] Cadence Hairston OT [place] Scheduled Referrals Name Type Priority Associated Diagnoses Orde r Schedule PHYSICAL THERAPY REFERRAL Outpatient Referral Routine Impingement syndrome of left shoulder region Expected: 07/16/2024, Expires: 07/16/2025 documented as of this encounter Visit Diagnoses Diagnosis Impingement syndrome of left shoulder region- Primary documented in this encounter Additional Health Concerns Assessment Noted Time PHQ-9 Depression Total Score: 19 023 6:08 PM CDT documented as of this encounter Care Teams Licensed Sales Producer Relationship Specialty Start Date End Date Bladimir Sanz MD [address] [address] PCP - General Family Medicine 05/07/23 documented as of this encounter
--- OUTSIDE RECORDS SUMMARY | 2024-10-15 14:23 | XMS_ITS | Referral Summary ---
Author Organization [facility] Address [address] [place] [address] Care Team Providers Care Bellows Assembler Name Role Phone Jyothi Escalante DO Unavailable [phone] Ana Rutherford MD Unavailable Mari Calvo NP Primary Care Provider Allergies Active Allergy Reactions Criticality Noted Date Comments Haemophilus Influenzae Type B Anaphylaxis High 03/28/2023 Patient allergy to Flue Vaccine Influenza Vaccine Tr-S 09 (Pf) Shortness of breath,Sneezing,Vomiti ng High 11/27/2018 Iodinated Contrast Media Hives Medium Medications METHADONE HCL (METHADONE ORAL) Take 60 mg by mouth daily Patient is taking 60 mg daily now. Active syringe with needle, safety 3 mL 25 gauge x 5/8 syringe Use to inject testosterone every week 20 each 3 3 Active sildenafiL, pulm.hypertensio n, (REVATIO) 20 mg tabletIndication s:Pulmonary Arterial Hypertension Take 60-100 mg prn before intercourse 60 tablet 3 4 Active syringe with needle (BD Luer-Meagan Syringe) 3 mL 25 x 5/8 syringe USE TO INJECT TESTOSTERONE EVERY WEEK 20 each 3 4 Active testosterone cypionate (DEPO-TESTOTERON E) 200 mg/mL injection Inject 0.75 mL (150 mg total) into the muscle as instructed once a week 10 mL 3 4 Active Active Problems Problem Noted Date Diagnosed Date Erectile disorder 02/28/2023 Assessment & Plan (12/05/2023 12:43 PM CDT): Chronic problem. Improvement noted with increase in testosterone & current sildenafil prn. Reviewed med SE & scheduling. If erection lasts >4hours; to go to ER. Assessment & Plan (08/08/2023 10:29 AM BLIND INSTALLER): Chronic problem. Improvement noted with increase in testosterone & current sildenafil prn. Reviewed med SE & scheduling. If erection lasts >4hours; to go to ER. Assessment & Plan (02/28/2023 2:18 PM CDT): Uncontrolled Start Sildenafil Tinea capitis 10/08/2022 Assessment & Plan (10/08/2022 11:45 AM CDT): Ordered ketoconazole shampoo 2%- use as directed 2 times weekly Patient advised to have his spouse use the shampoo as well, as long as she is not allergic Encouraged to wash bed linens in hot water, spray bed with Lysol, let air dry before applying clean linens Encouraged to clean shower and tub Encouraged to use a good dandruff shampoo with a conditioner to follow to help prevent dry skin to scalp and scratching Follow up as scheduled If no improvement in 4 weeks- call and schedule appointment to be seen S/P tonsillectomy 05/22/2022 Assessment & Plan (05/22/2022 1:20 PM BLIND INSTALLER): - s/p tonsillectomy 04/2022 by ENT - he had assymetric tonsils and with history of lymphoma decided to get tonsillectomy - Pathology came back with benign findins Testosterone deficiency 09/20/2021 Assessment & Plan (12/05/2023 12:41 PM CDT): Chronic problem. Currently taking testoterone 120mg/0.6ml weekly. No side effects. Will have testosterone labs checked midway between injections Verified that he uses mychart. Aware to check results/results letter in [employer]. Will contact by phone if needed. Assessment & Plan (08/08/2023 10:28 AM BLIND INSTALLER): Chronic problem. Currently taking testoterone 150mg weekly & feels that it has helped both ED & libido. No side effects. Will have testosterone labs checked midway between injections (next few days as he just injected yesterday). Verified that he uses mychart. Aware to check results/results letter in [employer] Will contact by phone if needed. Assessment & Plan (02/28/2023 2:17 PM CDT): Uncontrolled Increase T to 150 mg weekly Assessment & Plan (01/08/2023 11:31 AM CDT): Chronic problem. Started testosterone replacement injections 11/2022. Does not feel that it is really helping w/ED/Libido. Will update labs today. Verified that he uses mychart. Aware to check results/results letter in [employer]. Will contact by phone if needed. Will refill, & possibly adjust testosterone if needed, after labs received. Verified that he uses mychart. Aware to check results/results letter in my[employer]. Will contact by phone if needed. Assessment & Plan (12/11/2022 11:13 AM CDT): - recently established care with Endorinology Dr. Ana deshpande testosterone replacement therapy on 11/20/2022 with testosterone cypionate 200 mg every 14 days - continue current management per Endocrinology Lab Results Component Value Date TESTOSTERONE 142 (L) 10/08/2022 Lab Results Component Value Date PSA 0.69 10/08/2022 PSA 0.61 09/18/2021 Lab Results Component Value Date WBC 9.1 10/08/2022 HGB 14.8 10/08/2022 HCT 44.8 10/08/2022 MCV 86.3 10/08/2022 LABPLAT 222 10/08/2022 Assessment & Plan (11/20/2022 2:04 PM CDT): With history of testicular trauma; also might be related to opiate Use Start T replacement with testosterone cypionate SE were discussed Rx was sent. Assessment & Plan (12/25/2021 10:27 AM CDT): - chronic - most recent testosterone levels as shown below Lab Results Component Value Date TESTOSTERONE 180 (L) 09/18/2021 Lab Results Component Value Date TESTOSTERONE 288 12/01/2021 Bipolar disorder 09/14/2021 Overview (10/02/2022): Follows with Psychiatry at [facility] Assessment & Plan (12/11/2022 11:22 AM CDT): - chronic, stable but not at goal - known bipolar disorder, anxiety disorder - currently follows with [facility] Psychiatry - currently on Rexulti 1.5mg daily - currently on Mirtazapine 15 mg nightly - no longer on Escitalopram 10 mg daily - has weekly counseling as well - hx of hospitalization - continue therapy per psychiatry Lab Results Component Value Date TSH 3.45 10/08/2022 Assessment & Plan (10/02/2022 4:11 PM CDT): - chronic, stable - currently follows with [facility] Psychiatry - currently on Rexulti 1.5mg daily - currently on Mirtazapine 15 mg nightly - no longer on Escitalopram 10 mg daily - has weekly counseling as well - hx of hospitalization - continue therapy per psychiatry Lab Results Component Value Date TSH 1.91 09/18/2021 Assessment & Plan (05/22/2022 12:56 PM BLIND INSTALLER): - chronic, stable - currently follows with [facility] Psychiatry - currently on Rexulti 1.5mg daily - currently on Escitalopram 10 mg daily - currently on Mirtazapine 15 mg nightly - continue therapy per psychiatry - hx of hospitalization Lab Results Component Value Date TSH 1.91 09/18/2021 Assessment & Plan (09/14/2021 12:49 PM BLIND INSTALLER): - chronic, stable - currently follows with [facility] Psychiatry - currently on Rexulti 1.5mg daily - currently on Escitalopram 10 mg daily - currently on Mirtazapine 15 mg nightly - continue therapy per psychiatry - hx of hospitalization 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 Assessment & Plan (12/11/2022 11:31 AM CDT): - chronic, stable - on methadone therapy due to history of narcotic dependence, currently on 60 mg daily - history of cocaine use in past as well - ongoing for 18 years - follows at [facility] psychiatry - continue with current management Assessment & Plan (05/22/2022 1:16 PM BLIND INSTALLER): - chronic, stable - on methadone therapy due to history of narcotic dependence - history of cocaine use in past as well - ongoing for 18 years - follows at [facility] - continue with current management Assessment & Plan (09/28/2021 10:43 AM CDT): - chronic, stable - on methadone therapy due to history of narcotic dependence - history of cocaine use in past as well - ongoing for 18 years - follows at [facility] Dyslipidemia 09/14/2021 Assessment & Plan (12/11/2022 11:36 AM CDT): - chronic, not at goal - currently on Atorvastatin 40 mg daily (increased from 20 mg daily on 09/2022) - former smoker - has known abdominal aortic atherosclerosis - continue current management, recheck labs , order placed for next visit Lab Results Component Value Date HDL 35 (L) 10/08/2022 HDL 51 09/18/2021 HDL 42 03/30/2020 Lab Results Component Value Date LDLCALC 135 (H) 10/08/2022 LDLCALC 136 (H) 09/18/2021 LDLCALC 155 (H) 03/30/2020 LDL 88 02/02/2015 Lab Results Component Value Date TRIG 153 (H) 10/08/2022 TRIG 98 09/18/2021 TRIG 139 03/30/2020 The 10-year ASCVD risk score (Italia JUNG, et al., 2019) is: 12.6% Values used to calculate the score: Age: 62 years Sex: Male Is Non- : No Diabetic: No Tobacco smoker: No Systolic Blood Pressure: 138 mmHg Is BP treated: No HDL Cholesterol: 35 mg/dL Total Cholesterol: 201 mg/dL Assessment & Plan (10/01/2022 12:28 PM CDT): - chronic, not at goal - currently on Atorvastatin 20 mg daily - former smoker - has known abdominal aortic atherosclerosis - recheck lipid panel, order placed in past that needs to be done Lab Results Component Value Date HDL 51 09/18/2021 HDL 42 03/30/2020 HDL 36 (L) 02/02/2015 Lab Results Component Value Date LDLCALC 136 (H) 09/18/2021 LDLCALC 155 (H) 03/30/2020 LDL 88 02/02/2015 Lab Results Component Value Date TRIG 98 09/18/2021 TRIG 139 03/30/2020 TRIG 199.0 (H) 02/02/2015 The 10-year ASCVD risk score (Italia JUNG, et al., 2019) is: 6.4% Values used to calculate the score: Age: 62 years Sex: Male Is Non- : No Diabetic: No Tobacco smoker: No Systolic Blood Pressure: 106 mmHg Is BP treated: No HDL Cholesterol: 51 mg/dL Total Cholesterol: 207 mg/dL Assessment & Plan (05/22/2022 12:59 PM BLIND INSTALLER): - chronic, not at goal - no longer taking Atorvastatin 40 mg daily - currently on Atorvastatin 20 mg daily - former smoker - has known abdominal aortic atherosclerosis - recheck lipid panel Lab Results Component Value Date HDL 51 09/18/2021 HDL 42 03/30/2020 HDL 36 (L) 02/02/2015 Lab Results Component Value Date LDLCALC 136 (H) 09/18/2021 LDLCALC 155 (H) 03/30/2020 LDL 88 02/02/2015 Lab Results Component Value Date TRIG 98 09/18/2021 TRIG 139 03/30/2020 TRIG 199.0 (H) 02/02/2015 The 10-year ASCVD risk score (Italia JUNG, et al., 2019) is: 6.9% Values used to calculate the score: Age: 61 years Sex: Male Is Non- : No Diabetic: No Tobacco smoker: No Systolic Blood Pressure: 117 mmHg Is BP treated: No HDL Cholesterol: 51 mg/dL Total Cholesterol: 207 mg/dL Assessment & Plan (12/25/2021 10:45 AM CDT): - chronic, not at goal - no longer taking Atorvastatin 40 mg daily - restart Atorvastatin 20 mg daily, script sent - former smoker - has known abdominal aortic atherosclerosis Lab Results Component Value Date LDLCALC 136 (H) 09/18/2021 The 10-year ASCVD risk score (Ofelia ALEMAN Jr., et al., 2013) is: 6.1% Values used to calculate the score: Age: 61 years Sex: Male Is Non- : No Diabetic: No Tobacco smoker: No Systolic Blood Pressure: 108 mmHg Is BP treated: No HDL Cholesterol: 51 mg/dL Total Cholesterol: 207 mg/dL Assessment & Plan (09/14/2021 12:45 PM BLIND INSTALLER): - chronic, not at goal - check lipid panel and CMP Thyroid nodule 09/14/2021 Assessment & Plan (05/22/2022 12:57 PM BLIND INSTALLER): - chronic, stable - checked thyroid gland function - most recent Thyroid US as shown below - will monitor Lab Results Component Value Date TSH 1.91 09/18/2021 US Thyroid 10/2021 Stable 6 mm nodule within the left lobe of the thyroid gland as compared with 04/10/2019. - US Thyroid 03/2019 IMPRESSION: 1. 6.4 x 5.0 x 4.8 mm hyperechoic medial upper pole left thyroid nodule; TI-RADS 3, less than 1.5 cm diameter, continued ultrasound follow-up suggested. 2. Otherwise normal thyroid sonogram. 3. Overall size of thyroid gland has decreased since 02/20/2017 Sonogram. Assessment & Plan (12/25/2021 10:46 AM CDT): - chronic, stable - checked thyroid gland function - most recent Thyroid US as shown below - will monitor Lab Results Component Value Date TSH 1.91 09/18/2021 US Thyroid 10/2021 Stable 6 mm nodule within the left lobe of the thyroid gland as compared with 04/10/2019. - US Thyroid 03/2019 IMPRESSION: 1. 6.4 x 5.0 x 4.8 mm hyperechoic medial upper pole left thyroid nodule; TI-RADS 3, less than 1.5 cm diameter, continued ultrasound follow-up suggested. 2. Otherwise normal thyroid sonogram. 3. Overall size of thyroid gland has decreased since 02/20/2017 Sonogram. Assessment & Plan (09/14/2021 12:48 PM BLIND INSTALLER): - chronic, stable - check thyroid gland functio - last US thyroid as shown below, due for repeat evaluation - US Thyroid 03/2019 IMPRESSION: 1. 6.4 x 5.0 x 4.8 mm hyperechoic medial upper pole left thyroid nodule; TI-RADS 3, less than 1.5 cm diameter, continued ultrasound follow-up suggested. 2. Otherwise normal thyroid sonogram. 3. Overall size of thyroid gland has decreased since 02/20/2017 sonogram. 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 Four doses of Rituxan 05/2002 through 06/2002. Six doses of R-CVP between 08/2002 and 11/2002 with complete response - has an appointment on 09/18/21 with Heme/onc - no significant lymphadenopathy noted, no concerning findings on physical exam today Abdominal aortic atherosclerosis (CMS/HCC) 03/08 Assessment & Plan (05/22/2022 1:35 PM BLIND INSTALLER): - chronic, noted on CT abdomen/pelvis in 2018 - used to see Cardiology, currently on aspirin 81 mg daily and used to be on statin - most recent lipid panel as shown below - currently on Atorvastatin 20 mg daily, has been out of his medication for few weeks - restart medication CT the abdomen and pelvis: 04/01/2018 Liver and gallbladder unremarkable. Surgical clips in the right upper quadrant, as previously. No pancreatic mass identified. Spleen size within normal range. For the kidneys, no hydronephrosis. No adrenal mass identified. No small bowel dilatation identified. Evaluation the gastrointestinal tract is limited without oral contrast. No lymphadenopathy identified. Urinary bladder moderately distended with urine. Transverse dimension the prostate gland is 3.7 cm. Small umbilical hernia containing only adipose tissue. Mild atherosclerotic changes abdominal aorta. Degenerative change lumbar spine with degenerative disc disease at multiple levels. IMPRESSION: NO LYMPHADENOPATHY IDENTIFIED. Electronically signed by: Ck Stewart M.D Lab Results Component Value Date LDLCALC 136 (H) 09/18/2021 Assessment & Plan (12/25/2021 10:34 AM CDT): - chronic, noted on CT abdomen/pelvis in 2017 - used to see Cardiology, currently on aspirin 81 mg daily and used to be on statin - most recent lipid panel as shown below - has quit taking the atorvastatin 40 mg daily --> restart CT the abdomen and pelvis: 04/01/2018 Liver and gallbladder unremarkable. Surgical clips in the right upper quadrant, as previously. No pancreatic mass identified. Spleen size within normal range. For the kidneys, no hydronephrosis. No adrenal mass identified. No small bowel dilatation identified. Evaluation the gastrointestinal tract is limited without oral contrast. No lymphadenopathy identified. Urinary bladder moderately distended with urine. Transverse dimension the prostate gland is 3.7 cm. Small umbilical hernia containing only adipose tissue. Mild atherosclerotic changes abdominal aorta. Degenerative change lumbar spine with degenerative disc disease at multiple levels. IMPRESSION: NO LYMPHADENOPATHY IDENTIFIED. Electronically signed by: Ck Stewart M.D Lab Results Component Value Date LDLCALC 136 (H) 09/18/2021 Assessment & Plan (09/28/2021 10:41 AM CDT): - chronic, noted on CT abdomen/pelvis in 2018 - used to see Cardiology, currently on aspirin 81 mg daily and statin - will check lipid panel CT the abdomen and pelvis: 04/01/2018 Liver and gallbladder unremarkable. Surgical clips in the right upper quadrant, as previously. No pancreatic mass identified. Spleen size within normal range. For the kidneys, no hydronephrosis. No adrenal mass identified. No small bowel dilatation identified. Evaluation the gastrointestinal tract is limited without oral contrast. No lymphadenopathy identified. Urinary bladder moderately distended with urine. Transverse dimension the prostate gland is 3.7 cm. Small umbilical hernia containing only adipose tissue. Mild atherosclerotic changes abdominal aorta. Degenerative change lumbar spine with degenerative disc disease at multiple levels. IMPRESSION: NO LYMPHADENOPATHY IDENTIFIED. Electronically signed by: Ck Stewart M.D Assessment & Plan (03/08/2020 12:58 PM CDT): I agree with baby aspirin. Patient will obtain more recent lipid profile in targeting a LDL cholesterol of 50 mg/dL or less. Atypical chest pain 03/08/2020 Assessment & Plan (10/02/2022 4:10 PM CDT): - new diagnosis - atypical in nature based on description obtained from history - has been evaluated in the past by Cardiology including a stress test - most recent lipid panel as shown below - former long time smoker who quit smoking a year ago - will obtain ECG and may proceed with Stress testing - most recent Echo as shown below Echo 03/2020 Conclusions: Normal left ventricular systolic function with no focal wall motion abnormalities. Normal left ventricular size. Normal left ventricular wall thickness. Ejection fraction is visually estimated at 60 %. The left atrium is normal in size. Normal left atrial pressure based on pulmonary vein inflow. The right atrium is normal in size. Right Ventricular Systolic Pressure could not be estimated due to inadequate visualization of TR jet. Lab Results Component Value Date CHOL 207 (H) 09/18/2021 CHOL 225 (H) 03/30/2020 CHOL 164 02/02/2015 Lab Results Component Value Date HDL 51 09/18/2021 HDL 42 03/30/2020 HDL 36 (L) 02/02/2015 Lab Results Component Value Date LDLCALC 136 (H) 09/18/2021 LDLCALC 155 (H) 03/30/2020 LDL 88 02/02/2015 Lab Results Component Value Date TRIG 98 09/18/2021 TRIG 139 03/30/2020 TRIG 199.0 (H) 02/02/2015 Assessment & Plan (03/08/2020 1:01 PM CDT): Light of patient's known atherosclerosis, I plan to further evaluate his chest discomfort with Cardiolite treadmill stress testing. We will discuss his results with him when I see him in follow-up to discuss his lipids. Personal history of nicotine dependence 03/08/20 Assessment & Plan (10/01/2022 12:27 PM CDT): Social History Tobacco Use Smoking Status Former Packs/day: 1.00 Years: 45.00 Pack years: 45.00 Types: Cigarettes Start date: 07/15/1976 Quit date: 08/15/2021 Years since quittin.1 Smokeless Tobacco Former Quit date: 08/15/2021 - chronic, stable - Quit smoking 07/2021 - keep it up - up to date with lung cancer screening CT Lung cancer screening 04/05 IMPRESSION: Minimal emphysema without suspicious nodules. Lung-RADS v1.1 category 1: Negative. Recommendation: Continue annual screening low-dose chest CT in 12 months. Assessment & Plan (05/22/2022 12:56 PM BLIND INSTALLER): Social History Tobacco Use Smoking Status Former Packs/day: 1.00 Years: 45.00 Pack years: 45.00 Types: Cigarettes Start date: 07/15/1976 Quit date: 08/15/2021 Years since quittin.7 Smokeless Tobacco Former Quit date: 08/15/2021 - chronic, stable - Quit smoking 07/2021 - keep it up - up to date with lung cancer screening CT Lung cancer screening 04/05 IMPRESSION: Minimal emphysema without suspicious nodules. Lung-RADS v1.1 category 1: Negative. Recommendation: Continue annual screening low-dose chest CT in 12 months. Assessment & Plan (12/25/2021 10:54 AM CDT): Social History Tobacco Use Smoking Status Former Smoker Packs/day: 1.00 Years: 45.00 Pack years: 45.00 Types: Cigarettes Start date: 07/15/1976 Quit date: 08/15/2021 Years since quittin.3 Smokeless Tobacco Former User - chronic, stable - Quit smoking 07/2021 - keep it up - due for lung cancer screening, order placed Assessment & Plan (09/14/2021 12:34 PM BLIND INSTALLER): Social History Tobacco Use Smoking Status Former Smoker Packs/day: 1.00 Years: 45.00 Pack years: 45.00 Types: Cigarettes Start date: 07/15/1976 Quit date: 08/15/2021 Years since quittin.0 Smokeless Tobacco Current User - chronic, stable - Quit smoking 07/2021 - keep it up Assessment & Plan (03/08/2020 1:01 PM CDT): I commended the patient on his successful smoking cessation and encouraged him to maintain this in light of his known atherosclerosis. Hepatitis C virus infection cured after antiviral drug therapy 12/01/2018 Overview (10/10/2022): HCV Ab Positive HCV RNA - not detected 09/2021 Assessment & Plan (12/25/2021 10:39 AM CDT): - chronic, stable - successfully treated with Zepatier - follows up annually with gastroenterology - HCV RNA - not detected 09/2021 - monitor annually Lab Results Component Value Date HEPCAB Positive (A) 02/02/2015 Assessment & Plan (09/14/2021 12:32 PM BLIND INSTALLER): - chronic, stable - successfully treated with Zepatier - follows up annually with gastroenterology Assessment & Plan (12/01/2018 5:01 PM CDT): Patient is doing well. He completed treatment with Zepatier. We will check hepatitis C RNA level and if negative then will repeat in 1 year. Resolved Problems Problem Noted Date Diagnosed Date Resolved Date Difficulty urinating 12/04/2023 024 Asymmetric tonsils 12/25/2021 3 Assessment & Plan (04/27/2022 11:07 AM CDT): Continued healing for up to 6-8 weeks from surgery Continue increased fluids and light activity for one more week Assessment & Plan (04/20/2022 2:24 PM CDT): Continue to wean off Lortab from 8 mL every 4-6 hours to 6 mL then 4 mL Tylenol as needed every 4-6 hours Continue increased fluid intake and advance diet as tolerated Assessment & Plan (03/26/2022 2:04 PM CDT): Bilateral tonsillectomy - Discussed risks, benefits, and alternatives. Reviewed risks, including anesthesia, pain, bleeding, injury to lips, teeth, gums and tongue, dehydration, scarring, velopharyngeal insufficiency, voice changes, regrowth of tissue. - Reviewed postoperative care: 1-2 weeks off school/daycare, and 2 weeks of light activity and soft diet, with emphasis on fluid hydration, red or purple coloring, straws and dairy are fine to drink. - informational paperwork, including description of surgery, risks, and postop care provided All questions were answered and they would like to proceed. Will discuss with Dr. Palacios and Leoncio Assessment & Plan (12/25/2021 10:58 AM CDT): - left > Right tonsil - no concerns here but he reprt orts is getting bigger - lot of anxiety with his historyo of lymphoma - recommend ENT evaluation if there is continued concern Abdominal pain 11/16/2020 09/14/2021 Mass of breast 11/24/2014 09/14/2021 Immunizations Immunization Administration Dates Next Due Influenza, Unspecified 10/08/2022(Deferr ed: Allergy - ALLERGIC),05/22/2022(Deferred: Allergy),05/15/2021(Deferred: Allergy - ALLERGIC),05/03/2020(Deferred: Allergy - ALLERGIC),04/14/2020(Deferred: Patient Refused) Social History Tobacco Use Types Packs/Day Years Used Date Smoking Tobacco: Every Day Cigarettes 1 45.1 Started: 07/15/1976; Last attempted to quit: 08/15/2021 Vaping Smokeless Tobacco: Former Quit: 08/15/2021 Alcohol Use Standard Drinks/Week Comments No 0 (1 standard drink = 0.6 oz pur e alcohol) AUDIT-C Answer Date Recorded Frequency of Alcohol Consumption Not on file 01/17/2024 Q2: How many drinks containi ng alcohol do you have on a typical day when you are drinking? Patient does not drink Frequency of Binge Drinking Not on file 11/2023 PHQ-2 Answer Date Recorded PHQ-2 Total Score (If total score is 3 or more points, staff should administer the PHQ-9) 0 10/08/2022 Personal Safety Answer Date Recorded Have you ever been in or are you currently in a harmful physical or emotional relationship or is someone making you feel afraid or unsafe? Denies 03/03/2023 Sex and Gender Information Value Date Recorded Sex Assigned at Not on file Legal Sex Male 1:16 AM BLIND INSTALLER Gender Identity Male 09/09/2021 1:22 AM BLIND INSTALLER Sexual Orientation Straight 09/09/2021 1: 22 AM BLIND INSTALLER Last Filed Vital Signs Vital Sign Reading Time Taken Comments Blood Pressure 119/69 01/17/2024 9:16 AM CDT Pulse 94 01/17/2024 9:16 AM CDT Temperature 36.6 C (97.8 F) 01/17/2024 9:16 AM CDT Respiratory Rate 16 01/17/2024 9:16 AM CDT Oxygen Saturation 94% 01/17/2024 9:16 AM CDT Inhaled Oxygen Concentration - - Weight 82.2 kg (181 lb 3.2 oz) 01/17/2024 9:16 A M CDT Height 177.8 cm (5' 10 ) 01/17/2024 9:16 AM CDT Body Mass Index 26 01/17/2024 9:16 AM CDT Plan of Treatment Not on file Procedures Procedure Name Priority Date/Time Associated Diagnosis Comments PSA SCREEN Routine 11/14/2023 1:30 PM CDT Difficulty urinating HEPATITIS C RNA, QUANTITATIVE, PCR Routine 10/08/2022 11:32 AM CDT History of hepatitis C virus infection CT LUNG CANCER SCREENING Schedule Routine, Read Routine (OP Routine) 03/14/2022 5:09 PM CDT Personal history of nicotine dependence COLONOSCOPY 04/27/2016 12:00 AM CDT from Last 3 Months or Most Recently Relevant to Health Maintenance Results * PSA screen (11/14/2023 1:30 PM CDT) PSA 1.05 < OR = 4.00 ng/mL [facility] Comment: The total PSA value from this assay system is standardized against the WHO standard. The test result will be approximately 20% lower when compared to the equimolar-standardized total PSA (Cece Mclain). Comparison of serial PSA results should be interpreted with this fact in mind. This test was performed using the Siemens chemiluminescent method. Values obtained from different assay methods cannot be used interchangeably. PSA levels, regardless of value, should not be interpreted as absolute evidence of the presence or absence of disease. Blood 11/14/2023 1:30 PM CDT 11/14/2023 1:30 PM CDT Narrative [facility] - 11/15/2023 9:24 AM CDT FASTING:NO FASTING: NO us Kayce Sheth NP LAB BLOOD ORDERABLES Bailey l Result [facility] [address] [place] [address] * Hepatitis C (HCV) RNA PCR, quantitative (10/08/2022 11:32 AM CDT) [facility] HCV RNA result Not Detected TYLER GE ([place]) Comment: The quantifiable range of this assay is 15 IU/mL to 100,000,000 IU/mL (1.18 log IU/mL to 8.00 log IU/mL). Testing was performed by the MARLIN 6800 HCV Test ([employer] Testing performed at [facility] Current Interpretive Data was last revised on 2021 Testing performed by: [facility], 1 [facility]., [address] Blood 10/08/2022 11:3 2 AM CDT 10/08/2022 6:21 PM CDT us Tommy Connor MD LAB MICROBIOLOGY - GENE RAL ORDERABLES Final Result DEEDEE GE ([place]) 1 [facility] Department [place] [address] * CT Lung Cancer Screening (03/14/2022 5:09 PM CDT) Anatomical Region Laterality Modality Chest N/A Computed Tomogra phy 03/16/2022 3:36 PM CDT Narrative 03/16/2022 3:51 PM CDT EXAM DESCRIPTION: CT LUNG CANCER SCREENING REASON FOR STUDY: Screening CT of the chest in a former smoker with a 45 pack year smoking history. 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 TECHNIQUE: Low dose CT scan of the chest was performed without intravenous contrast using helical scanning technique. The exam extends from the lung apices through the lung bases. Automatic exposure control was used as a dose optimization technique. NOTE: This study was performed for the specific purposes of lung cancer screening and is not an alternative to diagnostic chest CT. RADIATION DOSE: CT dose index volume (CTDIvol) = 2.18 mGy COMPARISON: 04/01/2018 FINDINGS: SMOKING RELATED LUNG DISEASE: Minimal early emphysema. LUNG NODULES: No suspicious nodules. OTHER: Mild linear scarring again seen in the lingula, unchanged. No consolidation, pleural effusion or pneumothorax. Heart size is normal without pericardial effusion. No coronary atherosclerotic calcification. No intrathoracic, axillary or supraclavicular lymphadenopathy. Imaged upper abdomen is unremarkable. Review of images on the bone window setting reveals no suspicious osseous lesions or acute fractures. IMPRESSION: Minimal emphysema without suspicious nodules. Lung-RADS v1.1 category 1: Negative. Recommendation: Continue annual screening low-dose chest CT in 12 months. THIS IS AN ELECTRONICALLY VERIFIED FINAL REPORT 03/16/2022 3:51 PM - Electronically signed by Bladimir Martino M.D. ML: ML Report ID: [id number] Reading Location: [id number] Procedure Note Bladimir Martino MD - 03/16/2022 EXAM DESCRIPTION: CT LUNG CANCER SCREENING REASON FOR STUDY: Screening CT of the chest in a former smoker with a45 pack year smoking history. 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 TECHNIQUE: Low dose CT scan of the chest was performed without intravenous contrast using helical scanning technique. The exam extends from the lung apices through the lung bases. Automatic exposure control was used as adose optimization technique. NOTE: This study was performed for the specific purposes of lung cancer screening and is not an alternative to diagnostic chest CT. RADIATION DOSE: CT dose index volume (CTDIvol) = 2.18 mGy COMPARISON: 04/01/2018 FINDINGS: SMOKING RELATED LUNG DISEASE: Minimal early emphysema. LUNG NODULES: No suspicious nodules. OTHER: Mild linear scarring again seen in the lingula, unchanged. No consolidation, pleural effusion or pneumothorax. Heart size is normalwithout pericardial effusion. No coronary atherosclerotic calcification. No intrathoracic, axillary or supraclavicular lymphadenopathy. Imaged upper abdomen is unremarkable. Review of images on the bone window settingreveals no suspicious osseous lesions or acute fractures. IMPRESSION: Minimal emphysema without suspicious nodules. Lung-RADS v1.1 category 1: Negative. Recommendation: Continue annual screening low-dose chest CT in 12 months. THIS IS AN ELECTRONICALLY VERIFIED FINAL REPORT 03/16/2022 3:51 PM - Electronically signed by Bladimir Martino M.D. ML: ML Report ID: [id number] Reading Location: [place] [address] [facility] Bladimir Connor MD IM CT PROCEDURES Final Result * COLONOSCOPY (04/27/2016 12:00 AM CDT) Anatomical Region Laterality Modality Other Narrative 04/27/2016 12:00 AM CDT Ordered by an unspecified provider. Procedure Note Provider, MD Sourav - 04/27/2016 12:00 AM CDT PROCEDURE REPORT Patient: DAVID CRONIN Service Date: 04/27/2016 Account: [id number] Room No: : 1960 Patient Type: [facility] Attend.: Annie Galindo M.D. Admit Date: 04/27/2016 Dict.: Annie Galindo M.D. Disch. Date: 04/27/2016 SURGEON Annie Galindo MD PROCEDURE PERFORMED Diagnostic screening colonoscopy. INDICATIONS Screening for colon cancer. PRIMARY CARE PHYSICIAN Cyn Pina, Nurse Practitioner BRIEF HISTORY AND PHYSICAL The patient is a 55-year-old white male who presented for colonoscopy screening for evaluation. No previous colonoscopy. No family historyof colon cancer. In the past he came for colonoscopy but his colon was incomplete because of poor preparation. Patient has 2 colon preparationsat this time and colonoscopy is being performed. PROCEDURE Sedation was provided by anesthesia service. The procedure ofcolonoscopy including indications and possible complications of bleeding, infection, reaction to medication were discussed with the patient. Consent was obtained. Rectal exam prior to colonoscopy was unremarkable. The scope introduced to the rectum and advanced to the cecum which was identifiedby the ileocecal valve and appendiceal orifice. The quality of the colon preparation was excellent. The cecum, ascending colon, transverse colon, descending colon andsigmoid colon were all unremarkable and normal. The rectum was normal. Nopolyps and no mass lesions noted. Retroflexion of rectum showed small internal hemorrhoids. IMPRESSION 1. Small internal hemorrhoids. 2. Otherwise normal colonoscopy. RECOMMENDATIONS 1. Repeat colonoscopy for screening in 10 years. 2. Follow up in my office as the patient has issues with hepatitis C inthe past and the patient was advised to follow up in my office for further evaluation. Electronically Authenticated and Edited by: Annie Galindo MD On 05/01/2016 12:01 PM CDT Sully Cortez/nadine TD: 04/27/2016 10:36 CC: Cyn Pina Np Historical Provider ENDOSCOPY PROCEDURES Bailey l Result from Last 3 Months or Most Recently Relevant to Health Maintenance Insurance MEDICARE [place] MEDICARE [facility] MEDICARE [facility] Address: [address] [address] [place] [address] IDOR Care Teams Bellows Assembler Relationship Specialty Start Date End Date Mari Calvo NP [address] [address] PCP - General Family Medicine 03/19/24 Jyothi Escalante DO [address] [facility] [address] [facility] [address] [place] [address] Consulting Physician Otolaryngology 10/01/22 [place] [address] [facility] [address] [address] Consulting Physician Endocrinology Diabetes & Metabolism 12/11/22
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
--- OUTSIDE RECORDS SUMMARY | 2024-10-15 14:23 | XMS_ITS | Encounter Summary ---
Author Organization [facility] Address [address] [facility] [place] [address] Phone Care Team Providers Care Teacher Adult Education Name Role Phone Bladimir Sanz MD Primary Care Provider [phone] Reason for Referral * PT/OT/ST (Routine) - Authorized Specialty Diagnoses / Procedures Referred By Ananda villaseñor Referred To Contact Occupational Therapy Diagnoses Lateral epicondylitis, left elbow Mari Calvo APRN, SURFACE SUPERVISOR [address] [place] [address] Phone: tel: fax: [facility] at [address], [address] [address] Phone: tel: fax: Referral ID Status Reason Start Date Expiration Date V isits Requested Visits Authorized [id number] Authorized 09/11/2024 50 50 Scheduling Instructions RUMENTATION DESIGNER Encounter Details Date Type Department Care Team (Latest Contact Info) Description 09/11/2024 Transcribe Orders [facility] [address] [place] [address] Mari Calvo APRN, SURFACE SUPERVISOR [address] [place] [address] Lateral epicondylitis, left elbow (Primary Dx) Social History Tobacco Use Types [...] Description 10/20/2024 9:45 AM CDT Occupational [facility] [address], [address] [address] Mari Calvo, IDENTIFIER HORSE, SURFACE SUPERVISOR [address] [place] [address] Cadence Hairston OT [place] 10/20/2024 10:30 AM CDT Physical Therapy [facility] [address], [address] [address] Mari Calvo, IDENTIFIER HORSE, SURFACE SUPERVISOR [address] [place] [address] Tamy Bose, PT [place] 10/27/2024 9:45 AM CDT Occupational Therapy [facility] [address], [address] [id number] Mari Calvo, IDENTIFIER HORSE, SURFACE SUPERVISOR [address] [place] [address] Cadence [place]irst[place] OT [place] 11/03/2024 9:45 AM CDT [facility]ational [facility] [address], [address] [place] [address] Umesh, Mari A, IDENTIFIER HORSE, SURFACE SUPERVISOR [address] [place] [address] Cadence Hairston OT [place] 11/17/2024 9:45 AM CDT Occupational Therapy [facility] [address], [address] [place] [address] Umesh, Mari A, IDENTIFIER HORSE, SURFACE SUPERVISOR [address] [place] [address] Cadence [place]irst[place] OT [place] 11/24/2024 9:45 AM CDT Occupational Therapy [facility] [address], [address] [place] [address] Umehs, Mari A, IDENTIFIER HORSE, SURFACE SUPERVISOR [address] [place] [address] Cadence Hairston OT [place] 12/01/2024 9:45 AM CDT Occupational Therapy [facility] [address], [place] [address] [place] [address] Umesh, Mari A, IDENTIFIER HORSE, SURFACE SUPERVISOR [address] [place] [address] Cadence Hairston OT [place] Scheduled Referrals Name Type Priority Associated Diagnoses Order Schedule OCCUPATIONAL THERAPY REFERRAL Outpatient Referral Routine Lateral epicondylitis, left elbow Expected: 09/11/2024, Expires: 09/11/2025 documented as of this encounter Visit Diagnoses Diagnosis Lateral epicondylitis, left elbow- Primary documented in this encounter Additional Health Concerns Assessment Noted Time PHQ-9 Depression Total Score: 19 023 6:08 PM CDT documented as of this encounter Care Teams Teacher Adult Education Relationship Specialty Start Date End Date Bladimir Sanz MD [address] [address] PCP - General Family Medicine 05/07/23 documented as of this encounter
--- NOTE | 2024-10-15 14:45 | ED_ITS ---
HPI - URI/Sore Throat General Chief Complaint: Upper Respiratory Infection Stated Complaint: Sinus Problem/Cough/Chest Congestion Time Seen by Provider: 10/15/24 14:46 Source: patient, RN notes reviewed and old records reviewed Mode of arrival: ambulatory Limitations: no limitations History of Present Illness HPI Narrative: 64-year-old male presents to the [facility] with complaints of cough, chest congestion, runny nose. Patient is concerned because has pneumonia Onset (ago): day(s) (3) Related Data Home Medications ?Medication ?Instructions ?Recorded ?Confirmed ?Last Taken ?Type methadone 10 mg tablet 60 mg PO DAILY 12/02/20 04/25/21 Unknown History brexpiprazole 1 mg tablet (Rexulti) 1 mg PO DAILY 04/01/21 04/25/21 Unknown History mirtazapine 15 mg tablet 15 mg PO HS 04/01/21 04/25/21 Unknown History Allergies Allergy/AdvReac Type Severity Reaction Status Date / Time Iodinated Contrast Media Allergy Rash Verified 10/15/24 14:24 Review of Systems Review of Systems: All systems reviewed & are unremarkable except as noted in HPI and below Constitutional: Constitutional: Reports no additional constitutional complaints ENT: Reports as per HPI Cardiovascular: Cardiovascular: Reports no additional cardiovascular complaints, Denies chest pain and Denies dyspnea Respiratory: Respiratory: Reports as per HPI, Reports chest congestion, Reports cough and Denies dyspnea Musculoskeletal: Musculoskeletal: Reports no additional musculoskeletal complaints Integumentary/Breasts: Skin/Breast: Reports system reviewed and no additional complaints, except as docu PMFSH Past Medical History Medical History Substance abuse Heroin positive Suspected COVID-19 virus infection Comments At the time of my signature, I reviewed and agree with the nursing past medical, surgical, social, and family history. There is no relevant family history pertinent to the patient complaint. Exam Const: General: cooperative, healthy appearing, comfortable, no acute distress, well developed, alert and well nourished Nutritional Appearance: well nourished Orientation/consciousness: patient oriented x3 Limitations: no limitations HENMT: Head: normal to inspection Ears: hearing grossly normal bilaterally, external ears normal, TM's normal bilaterally, EAC's normal, mastoids normal and no periauricular adenopathy Face/Nose/Sinus: Nasal discharge present clear and face symmetric Face and sinus: normal facial exam and face symmetric Mouth: Yes Normal oral and palatal mucosa present, Yes lip normal, Yes tongue normal and Yes moist mucous membranes Throat: posterior oropharynx normal, uvula midline, postnasal drainage and no uvular edema Eyes: General: appearance normal, both eyes and all related structures Alignment and Position: alignment normal Neck: Neck: normal visual inspection, full ROM, no lymphadenopathy and no meningeal signs Chest: Chest palpation & inspection: normal inspection of the chest Resp: Effort & Inspection: normal respiratory effort and able to speak in complete sentences Auscultation: clear to auscultation bilaterally, no crackles, no rales, no rhonchi and no wheezes Cardio: Rate: regular rate Skin: General skin exam: normal color and no rashes or lesions noted Neuro: General: patient oriented x3, gait normal, moves all extremities and no meningeal signs Cognition (Neuro): normal cognition Speech: normal speech Gait exam (Neuro): Normal gait present Extrem: General: normal to inspection, full ROM, capillary refill normal and normal gait Psych: Appearance: grossly normal and well kempt Mental Status: mental status grossly normal Speech and movement: Normal speech and movement present and Clear speech present Affect: normal affect Attitude: cooperative Course Course Level of Care: Express Care Visit Vital Signs Vital signs: Vital Signs Temperature 98.7 F 10/15/24 14:21 Pulse Rate 75 10/15/24 14:21 Respiratory Rate 20 10/15/24 14:21 Blood Pressure 128/75 10/15/24 14:21 Pulse Oximetry 97 10/15/24 14:21 Oxygen Delivery Room Air 10/15/24 14:21 Temperature 98.7 F 10/15/24 14:21 Pulse Rate 75 10/15/24 14:21 Respiratory Rate 20 10/15/24 14:21 Blood Pressure 128/75 10/15/24 14:21 Pulse Oximetry 97 10/15/24 14:21 Oxygen Delivery Room Air 10/15/24 14:21 Reviewed MDM - URI/Sore Throat MDM Narrative Medical decision making narrative: Patient sitting comfortably in exam room. Nontoxic, vitals stable. Patient in no acute distress. Patient presents with 3 day history of URI symptoms. Flu COVID are negative Chest x-ray was offered with no acute findings due to cough and pneumonia pneumonia exposure. Patient declined at this time. Patient appropriate for outpatient treatment with close follow-up Discharge instructions reviewed with patient, as well as provided in writing per nursing staff. The instructions also include specific and strict return/GO TO THE ER as well as f/u information. All questions have been answered, and the patient deny any further questions with discharge and discharge plan. Some parts of this dictation were generated by voice recognition software and may contain typographical and/or grammatical inaccuracies. Differential Diagnosis Differential diagnosis: Likely upper respiratory infection, otitis media, sinusitis, viral infection, bronchitis, influenza and pharyngitis Lab Data Labs: Lab Results 10/15/24 Range/Units 15:00 POC Influenza A Ag Negative (Negative) POC Influenza B Ag Negative (Negative) POC SARS CoV-2 Ag Negative (Negative) Reviewed Critical Care Time Critical Care Time Critical Care Time: No Discharge Plan Discharge Clinical Impression: Upper respiratory infection Qualifiers: URI type: unspecified viral URI Qualified Code(s): J06.9 - Acute upper respiratory infection, unspecified Patient Disposition: Home, Self-Care Condition: Stable Instructions: Antibiotic Form, Upper Respiratory Infection (ED), Postnasal Drip (DC) Additional Instructions: Your rapid COVID test were negative Your rapid flu test was negative Your symptoms are likely due to a viral illness, which is not treated with antibiotics. Typically viral infections last 7-10 days, can linger for couple of weeks. It is very important to treat your symptoms. Drink plenty of water, Gatorade, Pedialyte, ice pops or Jell-O. -Alternate Tylenol and Motrin per package directions for fever or pain. You can alternate every 4 hours -Antihistamine medication such as Zyrtec/Claritin/Michelle during the day can help improve symptoms. -doing daily nasal irrigations can help relieve pressure your sinuses. Things like a Neti pot -Use Flonase twice a day for 5 days then daily to help reduce the inflammation and dry up your sinuses. -You can also use Mucinex. Be sure to drink plenty of water with this medication at least 8 ounces with every dose and it is important to drink 8 to 10 glasses of water per day. Water is a natural decongestant -Eat and drink things that are easy to swallow, like tea or soup, or popsicles. -Oral rinses such as: Salt water gargles and/or may use topical anesthetic (eg. Chloraseptic spray) or lozenges to relieve dryness or throat pain). -Frequent hand washing or hand stiff leg operator is one of the best ways to prevent spread of infection. -Using a vaporizer or humidifier at night will also help thin secretions and help with coughing up phlegm. -Follow up with primary care provider in 7-10 days if condition is not improving - For new or worsening symptoms go directly to the nearest ER Patient Language: [place] Prescriptions: No Action methadone 10 mg Tablet 60 mg PO DAILY Rexulti 1 mg tablet 1 mg PO DAILY mirtazapine 15 mg tablet 15 mg PO HS mupirocin calcium 2 % cream 1 applic TOPICAL TID Qty: 15 0RF Follow-up/Referrals: Umesh,MAHAMED Guerra [Primary Care Provider] - 2 Weeks ([facility] follow-up) Time of Disposition: 14:56
[2024-10-15 15:03] LABS: EDCOVIDSCREEN Negative (Negative); EDINFLUASCREEN Negative (Negative); EDINFLUBSCREEN Negative (Negative)
== END 2024-10-15 15:00 | disposition home or self-care (01) ==
PROVIDERS: Emergency Provider Nurse Practitioner; PCP Nurse Practitioner Family
DX: J06.9 Acute upper respiratory infection, unspecified (principal); Z20.822 Contact with and (suspected) exposure to COVID-19
CPT/HCPCS: 87426; 87804; 99212; G0463